=== PATIENT | female | born 1960 | race Caucasian/White ===

== ENCOUNTER 2018-08-31 11:28 | Inpatient (IN) | payer OTHER ==
[2018-08-31 12:04] VITALS: BMI 16.0
--- NOTE | 2018-08-31 14:18 | HP ---
CIWA Score - CIWA Score Nausea/Vomitin Muscle Tremors: 2 Anxiety: 2 Agitation: 2 Paroxysmal Sweats: 1-Minimal Palms Moist Orientation: 0-Oriented Tacttile Disturbances: 1-Very Mild Itch/Numbness Auditory Disturbances: 1-Very Mild Visual Disturbances: 0-None Headache: 2-Mild CIWA-Ar Total Score: 13 Admission ROS BHS - HPI Chief Complaint: i nee help to stop drinking alcohol Allergies/Adverse Reactions: Allergies Allergy/AdvReac Type Severity Reaction Status Date / Time No Known Allergies Allergy Verified 08/31/18 13:34 History of Present Illness: this 58 years old female with alcohol dependence,seeking detox,withdrawal symptom,last detox 25 years ago,[facility] history of hypertension non compliance mmtp 70 mgs po daily,last medicated today weight loss depression,insomnia longest period of sobriety 3 years nicotine dependence Exam Limitations: No Limitations - Ebola screening Have you traveled outside of the country in the last 21 days: No Have you had contact with anyone from an Ebola affected area: No Have you been sick,other than usual withdrawal symptoms: No Do you have a fever: No - Review of Systems Constitutional: Loss of Appetite, Malaise, Night Sweats, Changes in sleep, Unintentional Wgt. Loss EENT: reports: Nose Congestion Respiratory: reports: No Symptoms reported Cardiac: reports: No Symptoms Reported GI: reports: Nausea, Poor Appetite, Abdominal cramping : reports: No Symptoms Reported Musculoskeletal: reports: Back Pain, Muscle Pain Integumentary: reports: Dryness Neuro: reports: Headache, Tremors Endocrine: reports: No Symptoms Reported Hematology: reports: No Symptoms Reported Psychiatric: reports: No Sypmtoms Reported, Judgement Intact, Mood/Affect Appropiate, Orientated x3 (insomnia) Patient History - Patient Medical History Hx Anemia: No Hx Asthma: No Hx Chronic Obstructive Pulmonary Disease (COPD): No Hx Cancer: No Hx Cardiac Disorders: No Hx Congestive Heart Failure: No Hx Hypertension: Yes (on med) Hx Hypercholesterolemia: No Hx Pacemaker: No HX Cerebrovascular Accident: No Hx Seizures: No Hx Dementia: No Hx Diabetes: No Hx Gastrointestinal Disorders: No Hx Liver Disease: No Hx Genitourinary Disorders: No Hx Sexually Transmitted Disorders: No Hx Renal Disease (ESRD): No Hx Thyroid Disease: No Hx Human Immunodeficiency Virus (HIV): No (last 02/24 negative) Hx Hepatitis C: No Hx Depression: No Hx Suicide Attempt: No Hx Bipolar Disorder: No Hx Schizophrenia: No Other Medical History: insomnia,no homicidal,no suicidal - Patient Surgical History Past Surgical History: Yes Hx Neurologic Surgery: No Hx Cataract Extraction: No Hx Cardiac Surgery: No Hx Lung Surgery: No Hx Breast Surgery: No Hx Breast Biopsy: No Hx Abdominal Surgery: No Hx Appendectomy: Yes (at age 14) Hx Cholecystectomy: No Hx Genitourinary Surgery: No Hx Section: No Hx Orthopedic Surgery: No Other Surgical History: tonsilectomy at age 15 Anesthesia Reaction: No - PPD History Previous Implant?: Yes Documented Results: Negative w/o proof Implanted On Prior R Admission?: No PPD to be Administered?: Yes - Reproductive History Patient is a Female of Child Bearing Age (11 -55 yrs old): No Patient : No - Smoking Cessation Smoking history: Current every day smoker Have you smoked in the past 12 months: Yes Aproximately how many cigarettes per day: 3 Hx Chewing Tobacco Use: No Initiated information on smoking cessation: Yes 'Breaking Loose' booklet given: 08/31/18 - Substance & Tx. History Hx Alcohol Use: Yes Hx Substance Use: No Substance Use Type: Alcohol Hx Substance Use Treatment: No (25 years ago) - Substances Abused Alcohol-vodka/beer Route: Oral Frequency: Daily Amount used: 2 pts./2-6 pks. Age of first use: 15 Date of Last Use: 08/31/18 Family Disease History - Family Disease History Family Disease History: Other: Father (alcohol,), Mother (lacohol, ) Admission Physical Exam S - Vital Signs Vital Signs: Vital Signs - 24 hr 08/31/18 11:58 Temperature 97.8 F Pulse Rate 85 Respiratory 18 Rate Blood Pressure 127/84 - Physical General Appearance: Yes: Moderate Distress, Tremorous, Irritable, Sweating, Anxious HEENTM: Yes: Normocephalic, LIZANDRO, Pharynx Normal Respiratory: Yes: Lungs Clear, Normal Breath Sounds, No Respiratory Distress Neck: Yes: Within Normal Limits, Supple, Trachea in good position Breast: Yes: Breast Exam Deferred Cardiology: Yes: Within Normal Limits, Regular Rhythm, Regular Rate, S1, S2 Abdominal: Yes: Within Normal Limits, Normal Bowel Sounds, Non Tender, Soft Genitourinary: Yes: Within Normal Limits Back: Yes: Within Normal Limits, Normal Inspection, Muscle Spasm Musculoskeletal: Yes: full range of Motion, Back pain, Muscle Pain Extremities: Yes: Tremors 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: Yes: Within Normal Limits, frame nailer II-XII NML intact, Fully Oriented, Alert Integumentary: Yes: Dry Lymphatic: Yes: Within Normal Limits - Diagnostic (1) Alcohol dependence with uncomplicated withdrawal Current Visit: Yes Status: Acute (2) Syncope Current Visit: Yes Status: Acute (3) Nicotine dependence Current Visit: Yes Status: Chronic (4) Weight loss Current Visit: Yes Status: Acute (5) Dehydration Current Visit: Yes Status: Acute (6) Poor oral hygiene Current Visit: Yes Status: Acute (7) Methadone maintenance therapy patient Current Visit: Yes Status: Chronic (8) Insomnia Current Visit: Yes Status: Acute (9) Essential hypertension Current Visit: Yes Status: Acute Cleared for Admission [facility] - Detox or Rehab [facility] Level of Care: Medically Managed Detox Regimen/Protocol: Librium [facility] Breath Alcohol Content Breath Alcohol Content: 0.032 Urine Pregancy Test - Result Urine Test Results: Negative- NO Line Present Urine Drug Screen - Results Drug Screen Negative: No Urine Drug Screen Results: FOSTER-Cocaine, MTD-Methadone
[2018-08-31] MEDS ORDERED: P-EPHED 60MG/TRIPROLIDI 2.5MG TABLET PO PRN (14:28)
[2018-08-31] MEDS ORDERED: IBUPROFEN 400 MG TABLET (FP) PO PRN (14:28)
[2018-08-31] MEDS ORDERED: MAGNESIUM CITRATE 300 ML BOTTLE PO PRN (14:28)
[2018-08-31] MEDS ORDERED: ACETAMINOPHEN 325 MG TABLET (FP) PO PRN (14:28)
[2018-08-31] MEDS ORDERED: chlordiazePOXIDE HCL 25 MG CAPSULE PO PRN (14:28)
[2018-08-31] MEDS ORDERED: MENTHOL/PHENOL 1 EACH UD MM PRN (14:28)
[2018-08-31] MEDS ORDERED: MAGNESIUM HYDROX 2400MG/30ML ORAL SUSPENSION 30 ML CUP PO PRN (14:28)
[2018-08-31] MEDS ORDERED: hydrOXYzine PAMOATE 25 MG CAPSULE (FP) PO PRN (14:28)
[2018-08-31] MEDS ORDERED: NICOTINE POLACRILEX 2 MG GUM BUC PRN (14:28)
[2018-08-31] MEDS ORDERED: guaiFENesin/D-METHORPHAN HB 10 ML UNIT-DOSE CUPS PO PRN (14:28)
[2018-08-31] MEDS ORDERED: LOPERAMIDE HCL 2 MG CAPSULE PO PRN (14:28)
[2018-08-31] MEDS ORDERED: MAG HYDROX/AL HYDROX/SIMETH 30 ML UNIT-DOSE CUP PO PRN (14:28)
--- NOTE | 2018-08-31 16:30 | CONSULT ---
[facility] Psychiatric Consult - Data Date of interview: 08/31/18 Admission source: [facility] Identifying data: Patient is a 58 year old single female, mother of one, unemployed, homeless, and is supported by [facility]. This is patient's first admission to detox at [facility]. Patient admitted to for alcohol dependence. Substance Abuse History: Smoking Cessation. Smoking history: Current every day smoker. Have you smoked in the past 12 months: Yes. Aproximately how many cigarettes per day: 3. Hx Chewing Tobacco Use: No. Initiated information on smoking cessation: Yes. 'Breaking Loose' booklet given: 08/31/18. - Substance & Tx. History. Hx Alcohol Use: Yes. Hx Substance Use: No. Substance Use Type : Alcohol. Hx Substance Use Treatment: No (25 years ago). - Substances Abused. Alcohol-vodka/beer. Route: Oral. Frequency: Daily. Amount used: 2 pts./2-6 pks. Age of first use: 15. Date of Last Use: 08/31/18 Medical History: hypertension, Appendectomy, tonsillectomy Psychiatric History: Patient denies h/o psychiatric hospitalizations, outpatient care, and suicide attempt. Patient is currently prescribed seroquel 25mg from her primary care physician on [address]. Last took seroquel last night. Patient is currently enrolled at the [facility] methadone program. She is currently on methadone maintenance of 70mg daily. Physical/Sexual Abuse/Trauma History: denies. Psychiatric Findings - Problem List ([place] 1, 2,3) (1) Substance-induced sleep disorder Current Visit: Yes Status: Acute (2) Alcohol dependence with uncomplicated withdrawal Current Visit: Yes Status: Acute (3) Methadone maintenance therapy patient Current Visit: Yes Status: Chronic (4) Nicotine dependence Current Visit: Yes Status: Chronic - Initial Treatment Plan Initial Treatment Plan: Psychoeducation provided. Detoxification in progress. Will order Seroquel 25mg qhs. Benefits and side effects discussed. Verbal consent given.
[2018-08-31] MEDS: chlordiazePOXIDE HCL 25 MG CAPSULE PO SCH ×2 (17:07→22:03)
--- NOTE | 2018-08-31 17:42 | EKG ---
Test Reason : Blood Pressure : / mmHG Vent. Rate : 092 BPM Atrial Rate : 092 BPM P-R Int : 118 ms QRS Dur : 080 ms QT Int : 464 ms P-R-T Axes : 071 019 000 degrees QTc Int : 573 ms NORMAL SINUS RHYTHM POSSIBLE LEFT ATRIAL ENLARGEMENT SEPTAL INFARCT , AGE UNDETERMINED ABNORMAL ECG NO PREVIOUS ECGS AVAILABLE Confirmed by Evangelista Posey MD ([id number]) on 08/31/2018 5:41:38 PM Referred By: Confirmed By:Evangelista Posey MD
[2018-08-31 19:23] LABS: URINE APPEARANCE CLEAR; URINE BILIRUBIN NEGATIVE (<2.0 mg/dL); URINE COLOR YELLOW; URINE GLUCOSE (UA) NEGATIVE (NEGATIVE); URINE KETONE NEGATIVE (NEGATIVE); URINE LEUK ESTERASE 3+ (NEGATIVE); URINE NITRITE NEGATIVE (NEGATIVE); URINE PROTEIN NEGATIVE (NEGATIVE); URINE UROBILINOGEN NEGATIVE mg/dL (0.2-1.0)
[2018-08-31 19:38] LABS: EPI CELLS RARE /HPF (FEW); URINE HYALINE CAST 1 /lpf; URINE MUCUS RARE
[2018-08-31] MEDS ORDERED: MELATONIN 5 MG TABLETS PO PRN (22:00)
[2018-08-31] MEDS: THIAMINE HCL 100 MG TABLET (FP) PO SCH (22:03)
[2018-08-31] MEDS: QUEtiapine FUMARATE 25 MG TABLET (FP) PO SCH (22:04)
[2018-09-01] MEDS ORDERED: METHADONE HCL 40 MG DISPERSABLE TABLET ONE (04:47)
[2018-09-01] MEDS ORDERED: METHADONE HCL 10 MG TABLET ONE (04:48)
[2018-09-01] MEDS: METHADONE 40 MG, METHADONE 30 MG PO SCH (05:17)
[2018-09-01] MEDS: chlordiazePOXIDE HCL 25 MG CAPSULE PO SCH ×4 (05:17→22:03)
[2018-09-01] MEDS ORDERED: METHADONE HCL 10 MG TABLET PO SCH (06:00)
[2018-09-01] MEDS: PRENATAL VITAMINS W/ FOLIC ACID TABLET (FP) PO SCH (10:04)
--- NOTE | 2018-09-01 11:42 | PN ---
S CIWA - CIWA Score Nausea/Vomitin-No Nausea/No Vomiting Muscle Tremors: 4-Moderate,w/Arms Extend Anxiety: 4-Mod. Anxious/Guarded Agitation: 4-Moderately Restless Paroxysmal Sweats: 3 Orientation: 0-Oriented Tacttile Disturbances: 0-None Auditory Disturbances: 0-None Visual Disturbances: 0-None Headache: 0-None Present CIWA-Ar Total Score: 15 BHS Progress Note (SOAP) Subjective: sweats interrupted sleep agitation anxiety body aches Objective: 09/01/18 11:41 Vital Signs Temperature 96.4 F L 09/01/18 09:37 Pulse Rate 91 H 09/01/18 09:37 Respiratory Rate 18 09/01/18 09:37 Blood Pressure 122/83 09/01/18 09:37 O2 Sat by Pulse Oximetry (%) Laboratory Tests 08/31/18 16:02 Urine Color Yellow Urine Appearance Clear Urine pH 5.0 Ur Specific [place] 1.014 Urine Protein Negative Urine Glucose (UA) Negative Urine Ketones Negative Urine Blood Negative Urine Nitrite Negative Urine Bilirubin Negative Urine Urobilinogen Negative Ur Leukocyte Esterase 3+ H Urine WBC (Auto) 15 Urine RBC (Auto) 1 Ur Epithelial Cells Rare Hyaline Casts 1 Urine Mucus Rare rest of labs pending aaox3 ambulating no acute distress Assessment: 09/01/18 11:42 withdrawal sx Plan: continue detox increase fluids labs pending
[2018-09-01 14:18] LABS: HEMOGLOBIN 8.7 GM/dL (10.7-15.3); MCH 36.5 pg (25.7-33.7); MCHC 33.3 g/dl (32.0-36.0); MEAN CELL VOLUME 109.6 fl (80-96); PLATELET COUNT 211 K/MM3 (134-434); RBC 2.38 M/mm3 (3.60-5.2); RDW 21.1 % (11.6-15.6); WHITE BLOOD COUNT 4.9 K/mm3 (4.0-10.0)
[2018-09-01 14:50] LABS: ALBUMIN 2.6 g/dl (3.4-5.0); ALK PHOS 224 U/L (45-117); ANION GAP 9 MMOL/L (8-16); BILIRUBIN,TOTAL 0.7 mg/dL (0.2-1); BLOOD UREA NITROGEN 23 mg/dL (7-18); CALCIUM 8.2 mg/dL (8.5-10.1); CHLORIDE 103 mmol/L (98-107); CO2 29 mmol/L (21-32); CREATININE 1.1 mg/dL (0.55-1.3); GLUCOSE,RANDOM 64 mg/dL (74-106); POTASSIUM 4.4 mmol/L (3.5-5.1); SGOT/AST 120 U/L (15-37); SGPT/ALT 71 U/L (13-61); SODIUM 141 mmol/L (136-145); TOT PROT 6.2 g/dl (6.4-8.2)
[2018-09-01] MEDS: THIAMINE HCL 100 MG TABLET (FP) PO SCH (22:03)
[2018-09-01] MEDS: QUEtiapine FUMARATE 25 MG TABLET (FP) PO SCH (22:03)
[2018-09-02] MEDS ORDERED: METHADONE HCL 40 MG DISPERSABLE TABLET ONE (04:45)
[2018-09-02] MEDS ORDERED: METHADONE HCL 10 MG TABLET ONE (04:45)
[2018-09-02] MEDS: METHADONE 40 MG, METHADONE 30 MG PO SCH (05:35)
[2018-09-02] MEDS: chlordiazePOXIDE HCL 25 MG CAPSULE PO SCH ×2 (05:35→10:18)
[2018-09-02] MEDS: PRENATAL VITAMINS W/ FOLIC ACID TABLET (FP) PO SCH (10:18)
--- NOTE | 2018-09-02 11:01 | PN ---
[facility] CIWA - CIWA Score Nausea/Vomitin-No Nausea/No Vomiting Muscle Tremors: 3 Anxiety: 3 Agitation: 4-Moderately Restless Paroxysmal Sweats: 3 Orientation: 0-Oriented Tacttile Disturbances: 0-None Auditory Disturbances: 0-None Visual Disturbances: 0-None Headache: 0-None Present CIWA-Ar Total Score: 13 S Progress Note (SOAP) Subjective: sweats little shakes feeling better Objective: 09/02/18 11:01 Vital Signs Temperature 98.1 F 09/02/18 09:59 Pulse Rate 77 09/02/18 09:59 Respiratory Rate 17 09/02/18 09:59 Blood Pressure 122/89 09/02/18 09:59 O2 Sat by Pulse Oximetry (%) Laboratory Tests 08/31/18 09/01/18 09/01/18 16:02 05:55 05:55 WBC 4.9 RBC 2.38 L Hgb 8.7 L Hct 26.0 L MCV 109.6 H MCH 36.5 H MCHC 33.3 RDW 21.1 H Plt Count 211 MPV 10.0 Sodium 141 Potassium 4.4 Chloride 103 Carbon Dioxide 29 Anion Gap 9 BUN 23 H Creatinine 1.1 Creat Clearance w eGFR 51.20 Random Glucose 64 L Calcium 8.2 L Total Bilirubin 0.7 AST 120 H ALT 71 H Alkaline Phosphatase 224 H Total Protein 6.2 L Albumin 2.6 L Urine Color Yellow Urine Appearance Clear Urine pH 5.0 Ur Specific [place] 1.014 Urine Protein Negative Urine Glucose (UA) Negative Urine Ketones Negative Urine Blood Negative Urine Nitrite Negative Urine Bilirubin Negative Urine Urobilinogen Negative Ur Leukocyte Esterase 3+ H Urine WBC (Auto) 15 Urine RBC (Auto) 1 Ur Epithelial Cells Rare Hyaline Casts 1 Urine Mucus Rare RPR Titer 09/01/18 05:55 WBC RBC Hgb Hct MCV MCH MCHC RDW Plt Count MPV Sodium Potassium Chloride Carbon Dioxide Anion Gap BUN Creatinine Creat Clearance w eGFR Random Glucose Calcium Total Bilirubin AST ALT Alkaline Phosphatase Total Protein Albumin Urine Color Urine Appearance Urine pH Ur Specific [place] Urine Protein Urine Glucose (UA) Urine Ketones Urine Blood Urine Nitrite Urine Bilirubin Urine Urobilinogen Ur Leukocyte Esterase Urine WBC (Auto) Urine RBC (Auto) Ur Epithelial Cells Hyaline Casts Urine Mucus RPR Titer Nonreactive aaox3 ambulating no acute distress Assessment: 09/02/18 11:02 withdrawal sx Plan: continue detox increase fluids
[2018-09-02] MEDS: chlordiazePOXIDE 5 MG CAPSULE PO SCH ×2 (17:30→22:33)
[2018-09-02] MEDS: QUEtiapine FUMARATE 25 MG TABLET (FP) PO SCH (22:33)
[2018-09-02] MEDS: THIAMINE HCL 100 MG TABLET (FP) PO SCH (22:33)
[2018-09-03] MEDS ORDERED: METHADONE HCL 10 MG TABLET ONE (04:30)
[2018-09-03] MEDS ORDERED: METHADONE HCL 40 MG DISPERSABLE TABLET ONE (04:30)
[2018-09-03] MEDS: chlordiazePOXIDE 5 MG CAPSULE PO SCH ×2 (05:26→10:05)
[2018-09-03] MEDS: METHADONE 40 MG, METHADONE 30 MG PO SCH (05:27)
[2018-09-03] MEDS: PRENATAL VITAMINS W/ FOLIC ACID TABLET (FP) PO SCH (10:05)
--- NOTE | 2018-09-03 11:11 | PN ---
BHS Progress Note (SOAP) Subjective: right hip discomfort feeling much better sleeping much better Objective: 09/03/18 11:10 Vital Signs Temperature 98.4 F 09/03/18 09:41 Pulse Rate 93 H 09/03/18 09:41 Respiratory Rate 18 09/03/18 09:41 Blood Pressure 113/71 09/03/18 09:41 O2 Sat by Pulse Oximetry (%) aaox3 ambulating no acute distress repeat cbc and cmp today Assessment: 09/03/18 11:10 mild withdrawal sx Plan: continue detox increase fluids iron supplement tid pending labs lidocaine patch d/c in am
[2018-09-03] MEDS ORDERED: LIDOCAINE 5% TOPICAL PATCH TP ONE (11:30)
[2018-09-03] MEDS: FERROUS SO4 325 MG TABLET (FP) PO SCH ×2 (13:40→17:18)
[2018-09-03 15:09] LABS: BASO % 0.8 % (0-2.0); EOS % 0.7 % (0-4.5); HEMATOCRIT 26.3 % (32.4-45.2); HEMOGLOBIN 8.6 GM/dL (10.7-15.3); LYMPH % 25.3 % (8-40); MCH 36.5 pg (25.7-33.7); MCHC 32.7 g/dl (32.0-36.0); MEAN CELL VOLUME 111.6 fl (80-96); MEAN PLT VOLUME 8.7 fl (7.5-11.1); MONO % 6.5 % (3.8-10.2); NEUT % 66.7 % (42.8-82.8); PLATELET COUNT 209 K/MM3 (134-434); RBC 2.36 M/mm3 (3.60-5.2); RDW 20.6 % (11.6-15.6); WHITE BLOOD COUNT 5.4 K/mm3 (4.0-10.0)
[2018-09-03 15:24] LABS: ALBUMIN 2.5 g/dl (3.4-5.0); ALK PHOS 209 U/L (45-117); ANION GAP 7 MMOL/L (8-16); BILIRUBIN,TOTAL 0.5 mg/dL (0.2-1); BLOOD UREA NITROGEN 21 mg/dL (7-18); CALCIUM 8.3 mg/dL (8.5-10.1); CHLORIDE 111 mmol/L (98-107); CO2 29 mmol/L (21-32); GLUCOSE,RANDOM 116 mg/dL (74-106); POTASSIUM 3.9 mmol/L (3.5-5.1); SGOT/AST 81 U/L (15-37); SGPT/ALT 53 U/L (13-61); SODIUM 147 mmol/L (136-145)
[2018-09-03] MEDS: chlordiazePOXIDE HCL 10 MG CAPSULE PO SCH ×2 (18:36→22:10)
[2018-09-03 19:45] LABS: ANISOCYTOSIS 2+; MACROCYTOSIS 2+; PLATELET ESTIMATE ADEQUATE
[2018-09-03] MEDS ORDERED: LIDOCAINE PATCH REMOVAL MC SCH (22:00)
[2018-09-03] MEDS: QUEtiapine FUMARATE 25 MG TABLET (FP) PO SCH (22:10)
[2018-09-03] MEDS: THIAMINE HCL 100 MG TABLET (FP) PO SCH (22:10)
[2018-09-04] MEDS ORDERED: METHADONE HCL 40 MG DISPERSABLE TABLET ONE (04:46)
[2018-09-04] MEDS ORDERED: METHADONE HCL 10 MG TABLET ONE (04:47)
[2018-09-04] MEDS: chlordiazePOXIDE HCL 10 MG CAPSULE PO SCH (05:25)
[2018-09-04] MEDS: METHADONE 40 MG, METHADONE 30 MG PO SCH (05:25)
[2018-09-04] MEDS: FERROUS SO4 325 MG TABLET (FP) PO SCH (07:10)
[2018-09-04 09:33] VITALS: BP 116/87; PULSE 101; TEMP 98.2
[2018-09-04] MEDS: PRENATAL VITAMINS W/ FOLIC ACID TABLET (FP) PO SCH (11:05)
== END 2018-09-04 09:35 | disposition home or self-care (01) | DRG 773 ==
LOC: YASAS 11:28 → Y6N 14:45
PROC: HZ2ZZZZ Detoxification Services for Substance Abuse Treatment (ICD-10-PCS; principal; 2018-08-31)
DX: F10.230 Alcohol dependence with withdrawal, uncomplicated (principal); F11.20 Opioid dependence, uncomplicated; F17.210 Nicotine dependence, cigarettes, uncomplicated; F19.282 Other psychoactive substance dependence with psychoactive substance-induced sleep disorder; R55 Syncope and collapse; I10 Essential (primary) hypertension; E86.0 Dehydration; G47.00 Insomnia, unspecified; R46.0 Very low level of personal hygiene; R63.4 Abnormal weight loss; Z68.1 Body mass index [BMI] 19.9 or less, adult
CPT/HCPCS: 36415; 80053; 81003; 81015; 85025; 85027; 86593; 93005; 93010

== ENCOUNTER 2018-11-03 10:53 | Inpatient (IN) | payer OTHER ==
[2018-11-03 12:19] VITALS: BMI 16.6
--- NOTE | 2018-11-03 13:12 | HP ---
CIWA Score Nausea/Vomitin-Mild Nausea/No Vomiting Muscle Tremors: 3 Anxiety: 3 Agitation: 3 Paroxysmal Sweats: No Perspiration Orientation: 0-Oriented Tacttile Disturbances: 0-None Auditory Disturbances: 0-None Visual Disturbances: 0-None Headache: 3-Moderate CIWA-Ar Total Score: 13 - Admission Criteria [facility] Guidelines: Admission for Medically Managed Detox: Requires at least one of the followin. CIWA greater than 12 2. Seizures within the past 24 hours 3. Delirium tremens within the past 24 hours 4. Hallucinations within the past 24 hours 5. Acute intervention needed for co occurring medical disorder 6. Acute intervention needed for co occurring psychiatric disorder 7. Severe withdrawal that cannot be handled at a lower level of care (continued vomiting, continued diarrhea, abnormal vital signs) requiring intravenous medication and/or fluids 8. Admission ROS [facility] Chief Complaint: ETOH WITHDRAWAL SX Allergies/Adverse Reactions: Allergies Allergy/AdvReac Type Severity Reaction Status Date / Time No Known Allergies Allergy Verified 11/03/18 12:46 History of Present Illness: PATIENT PRESENTS WITH ETOH WITHDRAWAL SX. PATIENT IS KNOWN TO FACILITY, LAST ADMISSION 08/2018. PATIENT STARTED DRINKING AT AGE 16. PATIENT DRINKS 1-2 PINTS DAILY. LAST DRINK WAS THIS MORNING. LONGEST PERIOD OF SOBRIETY A FEW MONTHS. DENIES SEIZURES AND FALLS. +BLACKOUTS AND DRINKS SOON SHE GETS UP. PATIENT IN MMTP AT [facility], DOSE VERIFICATION PENDING. PATIENT HAD LAST DOSE THIS MORNING. + COCAINE USE. PMH INCLUDES HTN. DENIES SI/HI. Exam Limitations: No Limitations - Ebola screening Have you traveled outside of the country in the last 21 days: No (N) Have you had contact with anyone from an Ebola affected area: No Have you been sick,other than usual withdrawal symptoms: No Do you have a fever: No - Review of Systems Constitutional: Night Sweats, Unintentional Wgt. Loss EENT: reports: No Symptoms Reported Respiratory: reports: No Symptoms reported Cardiac: reports: No Symptoms Reported GI: reports: Nausea, Poor Fluid Intake, Abdominal cramping : reports: No Symptoms Reported Musculoskeletal: reports: No Symptoms Reported Integumentary: reports: No Symptoms Reported Neuro: reports: Headache, Numbness, Tingling, Tremors Endocrine: reports: Unexplained Weight Loss Hematology: reports: No Symptoms Reported Psychiatric: reports: Orientated x3, Anxious Patient History - Patient Medical History Hx Anemia: No Hx Asthma: No Hx Chronic Obstructive Pulmonary Disease (COPD): No Hx Cancer: No Hx Cardiac Disorders: No Hx Congestive Heart Failure: No Hx Hypertension: Yes Hx Hypercholesterolemia: No Hx Pacemaker: No HX Cerebrovascular Accident: No Hx Seizures: No Hx Dementia: No Hx Diabetes: No Hx Gastrointestinal Disorders: No Hx Liver Disease: No Hx Genitourinary Disorders: No Hx Sexually Transmitted Disorders: No Hx Renal Disease (ESRD): No Hx Thyroid Disease: No Hx Human Immunodeficiency Virus (HIV): No (last 02/24 negative) Hx Hepatitis C: No Hx Depression: No Hx Suicide Attempt: No Hx Bipolar Disorder: No Hx Schizophrenia: No - Patient Surgical History Past Surgical History: Yes Hx Neurologic Surgery: No Hx Cataract Extraction: No Hx Cardiac Surgery: No Hx Lung Surgery: No Hx Breast Surgery: No Hx Breast Biopsy: No Hx Abdominal Surgery: No Hx Appendectomy: Yes (at age 14) Hx Cholecystectomy: No Hx Genitourinary Surgery: No Hx Section: No Hx Orthopedic Surgery: No Other Surgical History: tonsilectomy at age 15 Anesthesia Reaction: No - PPD History Previous Implant?: Yes Documented Results: Negative w/proof Implanted On Prior R Admission?: Yes Date: 09/02/18 Results: 0 mm PPD to be Administered?: No - Reproductive History Patient is a Female of Child Bearing Age (11 -55 yrs old): No Patient : No - Smoking Cessation Smoking history: Current every day smoker Have you smoked in the past 12 months: Yes Aproximately how many cigarettes per day: 2 Hx Chewing Tobacco Use: No Initiated information on smoking cessation: Yes 'Breaking Loose' booklet given: 11/03/18 - Substance & Tx. History Hx Alcohol Use: Yes Hx Substance Use: Yes Substance Use Type: Alcohol, Cocaine, Prescribed Hx Substance Use Treatment: Yes - Substances Abused Cocaine Route: Inhalation Frequency: 1-2 times per week Amount used: $20 Age of first use: 15 Date of Last Use: 11/02/18 Alcohol-vodka/beer Route: Oral Frequency: Daily Amount used: 2-3 pts./1-6 pk. Age of first use: 15 Date of Last Use: 11/02/18 Family Disease History - Family Disease History Family Disease History: Other: Father (alcohol,), Mother (lacohol, ) Admission Physical Exam [facility] - Vital Signs Vital Signs: Vital Signs - 24 hr 11/03/18 12:17 Temperature 97.7 F Pulse Rate 88 Respiratory 18 Rate Blood Pressure 103/73 - Physical General Appearance: Yes: Appropriately Dressed, Alcohol on Breath, Thin, Tremorous, Anxious HEENTM: Yes: EOMI, Hearing grossly Normal, Normocephalic, Normal Voice, LIZANDRO, Pharynx Normal Respiratory: Yes: Chest Non-Tender, Lungs Clear, Normal Breath Sounds, No Respiratory Distress, No Accessory Muscle Use Neck: Yes: No masses,lesions,Nodules, Supple, Trachea in good position Breast: Yes: Breast Exam Deferred Cardiology: Yes: Regular Rhythm, Regular Rate, S1, S2 Abdominal: Yes: Normal Bowel Sounds, Non Tender, Flat, Soft Genitourinary: Yes: Within Normal Limits Back: Yes: Normal Inspection Musculoskeletal: Yes: full range of Motion, Gait Steady Extremities: Yes: Normal Range of Motion, Non-Tender, Tremors 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: Yes: pricing manager II-XII NML intact, Fully Oriented, Alert, Motor Strength 5/5, Normal Mood/Affect, Normal Response, Numbness Integumentary: Yes: Normal Color, Dry, Warm Lymphatic: Yes: Within Normal Limits - Diagnostic (1) Alcohol dependence with uncomplicated withdrawal Current Visit: Yes Status: Acute (2) Essential hypertension Current Visit: Yes Status: Chronic (3) Weight loss Current Visit: Yes Status: Acute (4) Methadone maintenance therapy patient Current Visit: Yes Status: Chronic (5) Nicotine dependence Current Visit: Yes Status: Acute Qualifiers: Nicotine product type: unspecified Cleared for Admission [facility] - Detox or Rehab [facility] Level of Care: Medically Managed Detox Regimen/Protocol: Librium [facility] Breath Alcohol Content Breath Alcohol Content: 0.052 Urine Pregancy Test - Result Urine Test Results: Negative- NO Line Present Urine Drug Screen - Results Drug Screen Negative: No Urine Drug Screen Results: FOSTER-Cocaine, OPI-Opiates, MTD-Methadone
[2018-11-03] MEDS ORDERED: MAGNESIUM CITRATE 300 ML BOTTLE PO PRN ×2 (13:20→15:15)
[2018-11-03] MEDS ORDERED: MAGNESIUM HYDROX 2400MG/30ML ORAL SUSPENSION 30 ML CUP PO PRN ×2 (13:20→15:15)
[2018-11-03] MEDS ORDERED: guaiFENesin/D-METHORPHAN HB 10 ML UNIT-DOSE CUPS PO PRN ×2 (13:20→15:15)
[2018-11-03] MEDS ORDERED: MAG HYDROX/AL HYDROX/SIMETH 30 ML UNIT-DOSE CUP PO PRN ×2 (13:20→15:15)
[2018-11-03] MEDS ORDERED: MENTHOL/PHENOL 1 EACH UD MM PRN ×2 (13:20→15:15)
[2018-11-03] MEDS ORDERED: P-EPHED 60MG/TRIPROLIDI 2.5MG TABLET PO PRN ×2 (13:20→15:15)
[2018-11-03] MEDS ORDERED: hydrOXYzine PAMOATE 50 MG CAPSULE (FP) PO PRN (13:20)
[2018-11-03] MEDS ORDERED: ACETAMINOPHEN 325 MG TABLET (FP) PO PRN ×2 (13:20→15:15)
[2018-11-03] MEDS ORDERED: NICOTINE POLACRILEX 2 MG GUM BUC PRN (13:20)
[2018-11-03] MEDS ORDERED: IBUPROFEN 400 MG TABLET (FP) PO PRN ×2 (13:20→15:15)
[2018-11-03] MEDS ORDERED: LOPERAMIDE HCL 2 MG CAPSULE PO PRN (13:20)
[2018-11-03] MEDS ORDERED: chlordiazePOXIDE HCL 25 MG CAPSULE PO PRN (13:22)
[2018-11-03] MEDS: chlordiazePOXIDE HCL 25 MG CAPSULE PO SCH ×2 (17:09→22:15)
[2018-11-03] MEDS ORDERED: MELATONIN 5 MG TABLETS PO PRN ×2 (22:00)
[2018-11-03] MEDS ORDERED: THIAMINE HCL 100 MG TABLET (FP) PO SCH (22:00)
[2018-11-03] MEDS: MINERAL OIL/PETROLAT/WATER TOPICAL CREAM 113 GM JAR TP SCH (22:15)
[2018-11-03] MEDS: THIAMINE HCL 100 MG TABLET (FP) PO SCH (22:15)
[2018-11-04] MEDS: chlordiazePOXIDE HCL 25 MG CAPSULE PO SCH ×4 (05:45→22:32)
[2018-11-04] MEDS ORDERED: METHADONE HCL 10 MG TABLET ONE (09:11)
[2018-11-04] MEDS ORDERED: METHADONE HCL 40 MG DISPERSABLE TABLET ONE (09:11)
[2018-11-04] MEDS ORDERED: COLLOIDAL OATMEAL 1 BAR EACH TP PRN (09:15)
--- NOTE | 2018-11-04 09:28 | PN ---
S CIWA - CIWA Score Nausea/Vomitin-Mild Nausea/No Vomiting Muscle Tremors: 3 Anxiety: 2 Agitation: 1-Slight > Activity Paroxysmal Sweats: 1-Minimal Palms Moist Orientation: 1-Uncertain about Date Tacttile Disturbances: 1-Very Mild Itch/Numbness Auditory Disturbances: 0-None Visual Disturbances: 0-None Headache: 2-Mild CIWA-Ar Total Score: 12 BHS Progress Note (SOAP) Subjective: sweat restlessness anxiety on methadone program 70 mg daily verified tremor itchy skin Objective: 11/04/18 09:32 Vital Signs Temperature 97.1 F L 11/04/18 09:22 Pulse Rate 80 11/04/18 09:22 Respiratory Rate 18 11/04/18 09:22 Blood Pressure 136/84 11/04/18 09:22 O2 Sat by Pulse Oximetry (%) 11/04/18 09:32 lab pending Assessment: 11/04/18 09:33 withdrawal sx Plan: continue detox
[2018-11-04] MEDS ORDERED: METHADONE HCL 10 MG TABLET PO ONE (10:00)
[2018-11-04] MEDS ORDERED: METHADONE 40 MG, METHADONE 30 MG PO ONE (10:00)
[2018-11-04] MEDS ORDERED: PRENATAL VITAMINS W/ FOLIC ACID TABLET (FP) PO SCH (10:00)
[2018-11-04] MEDS: PRENATAL VITAMINS W/ FOLIC ACID TABLET (FP) PO SCH (10:10)
[2018-11-04] MEDS: amLODIPine BESYLATE 10 MG TABLET (FP) PO SCH (10:11)
[2018-11-04] MEDS: PETROLATUM, WHITE 30 GM TUBE TP SCH (10:11)
[2018-11-04] MEDS: MINERAL OIL/PETROLAT/WATER TOPICAL CREAM 113 GM JAR TP SCH ×2 (10:11→22:32)
[2018-11-04 11:08] LABS: HEMATOCRIT 37.8 % (32.4-45.2); HEMOGLOBIN 12.1 GM/dL (10.7-15.3); MCH 32.9 pg (25.7-33.7); MEAN PLT VOLUME 8.9 fl (7.5-11.1); PLATELET COUNT 407 K/MM3 (134-434); RBC 3.67 M/mm3 (3.60-5.2); RDW 14.6 % (11.6-15.6); WHITE BLOOD COUNT 6.3 K/mm3 (4.0-10.0)
[2018-11-04 11:20] LABS: ALBUMIN 3.2 g/dl (3.4-5.0); ALK PHOS 153 U/L (45-117); ANION GAP 8 MMOL/L (8-16); BILIRUBIN,TOTAL 0.4 mg/dL (0.2-1); BLOOD UREA NITROGEN 24 mg/dL (7-18); CALCIUM 8.5 mg/dL (8.5-10.1); CHLORIDE 106 mmol/L (98-107); CO2 28 mmol/L (21-32); GLUCOSE,RANDOM 104 mg/dL (74-106); POTASSIUM 3.9 mmol/L (3.5-5.1); SGOT/AST 36 U/L (15-37); SGPT/ALT 21 U/L (13-61); SODIUM 141 mmol/L (136-145); TOT PROT 7.2 g/dl (6.4-8.2)
[2018-11-04] MEDS: THIAMINE HCL 100 MG TABLET (FP) PO SCH (22:31)
[2018-11-05] MEDS ORDERED: METHADONE HCL 40 MG DISPERSABLE TABLET ONE (05:08)
[2018-11-05] MEDS ORDERED: METHADONE HCL 10 MG TABLET ONE (05:08)
[2018-11-05] MEDS: chlordiazePOXIDE HCL 25 MG CAPSULE PO SCH ×2 (05:51→10:44)
[2018-11-05] MEDS: METHADONE 40 MG, METHADONE 30 MG PO SCH (05:51)
[2018-11-05] MEDS ORDERED: METHADONE HCL 10 MG TABLET PO SCH (06:00)
[2018-11-05] MEDS: amLODIPine BESYLATE 10 MG TABLET (FP) PO SCH (10:43)
[2018-11-05] MEDS: PRENATAL VITAMINS W/ FOLIC ACID TABLET (FP) PO SCH (10:44)
[2018-11-05] MEDS: PETROLATUM, WHITE 30 GM TUBE TP SCH (10:47)
[2018-11-05] MEDS: MINERAL OIL/PETROLAT/WATER TOPICAL CREAM 113 GM JAR TP SCH ×2 (12:01→22:26)
--- NOTE | 2018-11-05 14:27 | PN ---
S CIWA - CIWA Score Nausea/Vomitin-No Nausea/No Vomiting Muscle Tremors: None Anxiety: 3 Agitation: 4-Moderately Restless Paroxysmal Sweats: No Perspiration Orientation: 0-Oriented Tacttile Disturbances: 2-Mild Itch/Numbness/Burn Auditory Disturbances: 0-None Visual Disturbances: 0-None Headache: 0-None Present CIWA-Ar Total Score: 9 BHS Progress Note (SOAP) Subjective: PATIENT C/O ANXIETY, RESTLESSNESS AND BURNING/ITCHING TO FEET. REPORTS AMBULATING WITH CANE BUT SHE LOST IT. Objective: 11/05/18 14:25 Vital Signs Temperature 97.8 F 11/05/18 09:24 Pulse Rate 92 H 11/05/18 09:24 Respiratory Rate 18 11/05/18 09:24 Blood Pressure 117/91 11/05/18 09:24 O2 Sat by Pulse Oximetry (%) Laboratory Tests 11/04/18 11/04/18 11/04/18 05:45 05:45 05:45 WBC 6.3 RBC 3.67 Hgb 12.1 Hct 37.8 D MCV 103.0 H MCH 32.9 MCHC 32.0 RDW 14.6 D Plt Count 407 D MPV 8.9 Sodium 141 Potassium 3.9 Chloride 106 Carbon Dioxide 28 Anion Gap 8 BUN 24 H Creatinine 1.0 Creat Clearance w eGFR 57.15 Random Glucose 104 Calcium 8.5 Total Bilirubin 0.4 AST 36 ALT 21 Alkaline Phosphatase 153 H Total Protein 7.2 Albumin 3.2 L RPR Titer Nonreactive PE ALERT AND ORIENTED X 3 SKIN WARM AND DRY EXT FULL ROM, NO EDEMA AMB AD PACO RESTLESS AT TIMES, PACING IN [place]A Assessment: 11/05/18 14:26 WITHDRAWAL SX Plan: CONTINUE DETOX ORAL FLUIDS ENCOURAGED CANE ORDERED FOR AMBULATION SUPPORT
[2018-11-05] MEDS ORDERED: NICOTINE POLACRILEX 2 MG GUM BUC PRN (15:57)
[2018-11-05] MEDS: chlordiazePOXIDE 5 MG CAPSULE PO SCH ×2 (18:05→22:25)
[2018-11-05] MEDS: THIAMINE HCL 100 MG TABLET (FP) PO SCH (22:25)
[2018-11-06] MEDS ORDERED: METHADONE HCL 10 MG TABLET ONE (04:26)
[2018-11-06] MEDS ORDERED: METHADONE HCL 40 MG DISPERSABLE TABLET ONE (04:26)
[2018-11-06] MEDS: METHADONE 40 MG, METHADONE 30 MG PO SCH (05:23)
[2018-11-06] MEDS: chlordiazePOXIDE 5 MG CAPSULE PO SCH ×2 (05:23→10:32)
[2018-11-06] MEDS: amLODIPine BESYLATE 10 MG TABLET (FP) PO SCH (10:31)
[2018-11-06] MEDS: MINERAL OIL/PETROLAT/WATER TOPICAL CREAM 113 GM JAR TP SCH ×2 (10:31→23:35)
[2018-11-06] MEDS: PRENATAL VITAMINS W/ FOLIC ACID TABLET (FP) PO SCH (10:31)
[2018-11-06] MEDS: LOPERAMIDE HCL 2 MG CAPSULE PO PRN ×2 (10:32→17:44)
[2018-11-06] MEDS: PETROLATUM, WHITE 30 GM TUBE TP SCH (10:34)
[2018-11-06] MEDS ORDERED: WITCH HAZEL 50% (TUCKS) 40 PAD/JAR PAD TP PRN (12:10)
--- NOTE | 2018-11-06 17:38 | PN ---
BHS Progress Note (SOAP) Subjective: H/A, Diarrhea, Interrupted Sleep, Sweating. Objective: PATIENT A & O X 3, OBSERVED AMBULATING ON UNIT WITH ASSISTANCE OF A CANE. IN NO ACUTE DISTRESS. 11/06/18 17:35 Vital Signs Temperature 96.7 F L 11/06/18 15:10 Pulse Rate 82 11/06/18 15:10 Respiratory Rate 16 11/06/18 15:10 Blood Pressure 109/75 11/06/18 15:10 O2 Sat by Pulse Oximetry (%) Laboratory Tests 11/04/18 11/04/18 11/04/18 05:45 05:45 05:45 WBC 6.3 RBC 3.67 Hgb 12.1 Hct 37.8 D MCV 103.0 H MCH 32.9 MCHC 32.0 RDW 14.6 D Plt Count 407 D MPV 8.9 Sodium 141 Potassium 3.9 Chloride 106 Carbon Dioxide 28 Anion Gap 8 BUN 24 H Creatinine 1.0 Creat Clearance w eGFR 57.15 Random Glucose 104 Calcium 8.5 Total Bilirubin 0.4 AST 36 ALT 21 Alkaline Phosphatase 153 H Total Protein 7.2 Albumin 3.2 L RPR Titer Nonreactive LABS NOTED. Assessment: 11/06/18 17:37 WITHDRAWAL SYMPTOMS. Plan: CONTINUE DETOX. INCREASE DAILY PO FLUID INTAKE. PRN IMMODIUUM FOR DIARRHEA.
[2018-11-06] MEDS: chlordiazePOXIDE HCL 10 MG CAPSULE PO SCH ×2 (17:42→22:23)
[2018-11-06] MEDS: THIAMINE HCL 100 MG TABLET (FP) PO SCH (22:23)
[2018-11-07] MEDS ORDERED: METHADONE HCL 10 MG TABLET ONE (03:23)
[2018-11-07] MEDS ORDERED: METHADONE HCL 40 MG DISPERSABLE TABLET ONE (03:23)
[2018-11-07] MEDS: chlordiazePOXIDE HCL 10 MG CAPSULE PO SCH (05:55)
[2018-11-07] MEDS: METHADONE 40 MG, METHADONE 30 MG PO SCH (05:55)
[2018-11-07 10:10] VITALS: BP 114/79; PULSE 97; TEMP 98.2
--- NOTE | 2018-11-07 17:37 | DS ---
[facility] Detox Discharge Summary Admission Date: 11/03/18 Discharge Date: 11/07/18 - History Present History: Alcohol Dependence Additional Comments: Patient completed detox successfully. Patient is A, A, Ox3, in nad. Patient c/o diarrhea x 3 days and that she only took imodium twice. Polymer Specialist encouraged patient to stay until tomorrow to improve diarrhea but patient stated that her sister from the 6th floor is waiting for her and that she wants to go home. Patient stated diarrhea has improved a little. She agreed to have imodium Rx sent to her pharmacy. Patient instructed to drink more water and take imodium q4hr prn and to follow up with her PCP within 1-2 weeks. Pertinent Past History: Alcohol dependence HTN Nicotine dependence Opioid dependence on agonist - Physical Exam Results Vital Signs: Vital Signs Temperature 98.2 F 11/07/18 10:09 Pulse Rate 97 H 11/07/18 10:09 Respiratory Rate 18 11/07/18 10:09 Blood Pressure 114/79 11/07/18 10:09 O2 Sat by Pulse Oximetry (%) Pertinent Admission Physical Exam Findings: Withdrawal symptoms Laboratory Tests 11/04/18 11/04/18 11/04/18 05:45 05:45 05:45 WBC 6.3 RBC 3.67 Hgb 12.1 Hct 37.8 D MCV 103.0 H MCH 32.9 MCHC 32.0 RDW 14.6 D Plt Count 407 D MPV 8.9 Sodium 141 Potassium 3.9 Chloride 106 Carbon Dioxide 28 Anion Gap 8 BUN 24 H Creatinine 1.0 Creat Clearance w eGFR 57.15 Random Glucose 104 Calcium 8.5 Total Bilirubin 0.4 AST 36 ALT 21 Alkaline Phosphatase 153 H Total Protein 7.2 Albumin 3.2 L RPR Titer Nonreactive Labs reviewed: prerenal azotemia (encouraged PO water hydration) - Medication Discharge Medications: Ambulatory Orders Amlodipine Besylate [Norvasc -] 10 mg PO DAILY 11/03/18 Loperamide HCl [Imodium A-D] 2 mg PO Q4H PRN #30 capsule 11/07/18
== END 2018-11-07 09:33 | disposition home or self-care (01) | DRG 773 ==
LOC: YASAS 10:53 → Y3N 13:52
PROC: HZ2ZZZZ Detoxification Services for Substance Abuse Treatment (ICD-10-PCS; principal; 2018-11-03)
DX: F10.230 Alcohol dependence with withdrawal, uncomplicated (principal); F11.20 Opioid dependence, uncomplicated; F14.10 Cocaine abuse, uncomplicated; F17.210 Nicotine dependence, cigarettes, uncomplicated; I10 Essential (primary) hypertension; R79.89 Other specified abnormal findings of blood chemistry; R63.4 Abnormal weight loss; Z68.1 Body mass index [BMI] 19.9 or less, adult; R26.89 Other abnormalities of gait and mobility; Z99.89 Dependence on other enabling machines and devices
CPT/HCPCS: 36415; 80053; 85027; 86593

== ENCOUNTER 2019-03-01 11:51 | Inpatient (IN) | payer OTHER ==
[2019-03-01 15:28] VITALS: BMI 16.1
--- NOTE | 2019-03-01 15:45 | HP ---
CIWA Score Nausea/Vomitin-No Nausea/No Vomiting Muscle Tremors: 4-Moderate,w/Arms Extend Anxiety: 3 Agitation: 0-Normal Activity Paroxysmal Sweats: 2 Orientation: 1-Uncertain about Date Tacttile Disturbances: 2-Mild Itch/Numbness/Burn Auditory Disturbances: 0-None Visual Disturbances: 0-None Headache: 0-None Present CIWA-Ar Total Score: 12 - Admission Criteria OASAS Guidelines: Admission for Medically Managed Detox: Requires at least one of the followin. CIWA greater than 12 2. Seizures within the past 24 hours 3. Delirium tremens within the past 24 hours 4. Hallucinations within the past 24 hours 5. Acute intervention needed for co occurring medical disorder 6. Acute intervention needed for co occurring psychiatric disorder 7. Severe withdrawal that cannot be handled at a lower level of care (continued vomiting, continued diarrhea, abnormal vital signs) requiring intravenous medication and/or fluids 8. Patient presents the following: CIWA greater than 12, Acute intervention needed for co-occurring med or psych disorder Admission Criteria Met: Admission criteria met Admission ROS S - [facility] Chief Complaint: I need to stop drinking Allergies/Adverse Reactions: Allergies Allergy/AdvReac Type Severity Reaction Status Date / Time No Known Allergies Allergy Verified 03/01/19 15:23 History of Present Illness: 58 yo female with hx of alcohol, cocaine dependence is here seeking detox d/t withdrawal sx Last detox [facility] 11/03/18 -11/07/18. Reports was in the [facility] emergency dept about a week ago after taking methadone and suboxone together. On MMTP at [facility] on 70 mg qd, last medicated today. Reports no significant period of sobriety PMHX: HTN Psych: insomnia Denies hx of seizure or blackouts Exam Limitations: No Limitations - Ebola screening Have you traveled outside of the country in the last 21 days: No Have you had contact with anyone from an Ebola affected area: No - Review of Systems Constitutional: Loss of Appetite, Changes in sleep, Unintentional Wgt. Loss ( loss 6 lbs) EENT: reports: Nose Congestion, Dental Problems (bad teeth), Other ("I have a hole on nose") Respiratory: reports: No Symptoms reported Cardiac: reports: No Symptoms Reported GI: reports: Poor Appetite, Poor Fluid Intake : reports: No Symptoms Reported Musculoskeletal: reports: No Symptoms Reported Integumentary: reports: Dryness, Pruritus, Other (bruise left arm while at the hospital) Neuro: reports: No Symptoms reported Endocrine: reports: Increased Thirst, Change in Weight Hematology: reports: No Symptoms Reported Psychiatric: reports: Orientated x3, Anxious Other Systems: Reviewed and Negative Patient History - Patient Medical History Hx Anemia: No Hx Asthma: No Hx Chronic Obstructive Pulmonary Disease (COPD): No Hx Cancer: No Hx Cardiac Disorders: No Hx Congestive Heart Failure: No Hx Hypertension: Yes Hx Hypercholesterolemia: No Hx Pacemaker: No HX Cerebrovascular Accident: No Hx Seizures: No Hx Dementia: No Hx Diabetes: No Hx Gastrointestinal Disorders: No Hx Liver Disease: No Hx Genitourinary Disorders: No Hx Sexually Transmitted Disorders: No Hx Renal Disease (ESRD): No Hx Thyroid Disease: No Hx Human Immunodeficiency Virus (HIV): No (last 02/24 negative) Hx Hepatitis C: No Hx Depression: No Hx Suicide Attempt: No Hx Bipolar Disorder: No Hx Schizophrenia: No - Patient Surgical History Past Surgical History: Yes Hx Neurologic Surgery: No Hx Cataract Extraction: No Hx Cardiac Surgery: No Hx Lung Surgery: No Hx Breast Surgery: No Hx Breast Biopsy: No Hx Abdominal Surgery: No Hx Appendectomy: Yes (at age 14) Hx Cholecystectomy: No Hx Genitourinary Surgery: No Hx Section: No Hx Orthopedic Surgery: No Other Surgical History: tonsilectomy at age 15 Anesthesia Reaction: No - PPD History Previous Implant?: No Documented Results: Negative w/proof Date: 09/02/18 Results: 0 mm PPD to be Administered?: No - Smoking Cessation Smoking history: Current every day smoker Have you smoked in the past 12 months: Yes Aproximately how many cigarettes per day: 2 Hx Chewing Tobacco Use: No Initiated information on smoking cessation: Yes 'Breaking Loose' booklet given: 03/01/19 - Substance & Tx. History Hx Alcohol Use: Yes Hx Substance Use: Yes Substance Use Type: Alcohol, Cocaine Hx Substance Use Treatment: Yes - Substances abused Alcohol Substance route: Oral Frequency: Daily Amount used: 1 pt. vodka, 2 cans beer ( 32 oz) Age of first use: 15 Date of last use: 03/01/19 Family Disease History - Family Disease History Family Disease History: Other: Father (alcohol,), Mother (lacohol, ) Admission Physical Exam BHS - Vital Signs Vital Signs: Vital Signs - 24 hr 03/01/19 03/01/19 15:24 15:38 Temperature 98 F 98 F Pulse Rate 82 82 Respiratory 18 18 Rate Blood Pressure 160/108 H 160/108 H - Physical General Appearance: Yes: Disheveled, Mild Distress, Cachetic, Tremorous, Sweating, Anxious HEENTM: Yes: Within Normal Limits, EOMI, Hearing grossly Normal, Normal ENT Inspection, Normocephalic, Normal Voice, LIZANDRO, Pharynx Normal, Tm's normal, Other (poor dentition, dry nasal pasages) Respiratory: Yes: Within Normal Limits, Chest Non-Tender, Lungs Clear, Normal Breath Sounds, No Respiratory Distress, No Accessory Muscle Use Neck: Yes: Within Normal Limits, Thyroid tenderness Cardiology: Yes: Regular Rhythm, Regular Rate, Murmur Abdominal: Yes: Normal Bowel Sounds, Non Tender, Flat, Soft Genitourinary: Yes: Within Normal Limits Back: Yes: Normal Inspection Musculoskeletal: Yes: full range of Motion, Gait Steady, Pelvis Stable Extremities: Yes: Normal Capillary Refill, Normal Inspection, Normal Range of Motion, Non-Tender 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: 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 intact, Fully Oriented, Alert, Motor Strength 5/5, Depressed Affect Integumentary: Yes: Normal Color, Warm, Diaphoresis, Other (ecchymosis left upper arm, + lesion on lower extremities from scratching) Lymphatic: Yes: Within Normal Limits - Addiitonal Findings: Patient encourage to follow up with primary care provider upon completing detox - Diagnostic (1) Alcohol dependence with uncomplicated withdrawal Current Visit: No Status: Acute (2) Methadone maintenance therapy patient Current Visit: Yes Status: Chronic (3) Weight loss Current Visit: Yes Status: Acute (4) Essential hypertension Current Visit: Yes Status: Chronic (5) Nicotine dependence Current Visit: Yes Status: Chronic Qualifiers: Nicotine product type: cigarettes Substance use status: uncomplicated Qualified Code(s): F17.210 - Nicotine dependence, cigarettes, uncomplicated (6) Insomnia Current Visit: Yes Status: Acute Qualifiers: Insomnia type: unspecified Qualified Code(s): G47.00 - Insomnia, unspecified (7) Poor oral hygiene Current Visit: Yes Status: Acute Cleared for Admission [facility] - Detox or Rehab [facility] Level of Care: Medically Managed Detox Regimen/Protocol: Librium Breathalyzer - Breathalyzer Breathalyzer: 0.085 POC Urine test - Test device test lot number: [id number] Expiration date: 07/09/20 - Control test control: Yes - Result Urine Test Results: Negative - NO line present Urine Drug Screen - Test Device Lot number: [id number] Expiration date: 10/08/20 - Control Is test valid?: Yes - Results Drug screen NEGATIVE: No Urine drug screen results: FOSTER-Cocaine, MTD-Methadone Inpatient Rehab Admission - Rehab Decision to Admit Inpatient rehab admission?: No
[2019-03-01] MEDS ORDERED: ACETAMINOPHEN 325 MG TABLET (FP) PO PRN ×2 (15:59)
[2019-03-01] MEDS ORDERED: METHOCARBAMOL 500 MG TABLET PO PRN (15:59)
[2019-03-01] MEDS ORDERED: guaiFENesin 200 MG/10 ML 10 ML UNIT-DOSE CUPS PO PRN (15:59)
[2019-03-01] MEDS ORDERED: MAG HYDROX/AL HYDROX/SIMETH 30 ML UNIT-DOSE CUP PO PRN (15:59)
[2019-03-01] MEDS ORDERED: chlordiazePOXIDE HCL 25 MG CAPSULE PO PRN (15:59)
[2019-03-01] MEDS ORDERED: MAGNESIUM HYDROX 2400MG/30ML ORAL SUSPENSION 30 ML CUP PO PRN (15:59)
[2019-03-01] MEDS ORDERED: P-EPHED 60MG/TRIPROLIDI 2.5MG TABLET PO PRN (15:59)
[2019-03-01] MEDS ORDERED: hydrOXYzine PAMOATE 25 MG CAPSULE (FP) PO PRN (15:59)
[2019-03-01] MEDS ORDERED: MENTHOL/PHENOL 1 EACH UD MM PRN (15:59)
[2019-03-01] MEDS ORDERED: BISMUTH SUBSALICYLATE 524 MG/30 ML UD PO PRN (15:59)
[2019-03-01] MEDS ORDERED: ONDANSETRON *ODT* 4 MG TABLET SL PRN (15:59)
[2019-03-01] MEDS ORDERED: MELATONIN 5 MG TABLETS PO PRN (15:59)
[2019-03-01] MEDS ORDERED: MAGNESIUM CITRATE 300 ML BOTTLE PO PRN (15:59)
[2019-03-01] MEDS: amLODIPine BESYLATE 10 MG TABLET (FP) PO SCH (17:27)
[2019-03-01] MEDS: THIAMINE HCL 100 MG TABLET (FP) PO SCH (22:06)
[2019-03-01] MEDS: chlordiazePOXIDE HCL 25 MG CAPSULE PO SCH (22:06)
[2019-03-01] MEDS: MINERAL OIL/PETROLAT/WATER TOPICAL CREAM 113 GM JAR TP SCH (22:07)
[2019-03-02] MEDS: chlordiazePOXIDE HCL 25 MG CAPSULE PO SCH ×4 (05:42→22:07)
[2019-03-02] MEDS: IBUPROFEN 400 MG TABLET (FP) PO PRN (05:43)
[2019-03-02] MEDS ORDERED: METHADONE HCL 40 MG DISPERSABLE TABLET PO SCH (07:45)
[2019-03-02] MEDS ORDERED: METHADONE HCL 10 MG TABLET ONE (08:33)
[2019-03-02] MEDS ORDERED: METHADONE HCL 40 MG DISPERSABLE TABLET ONE (08:33)
[2019-03-02] MEDS: METHADONE 40 MG, METHADONE 30 MG PO SCH (08:50)
[2019-03-02] MEDS: PRENATAL VITAMINS W/ FOLIC ACID TABLET (FP) PO SCH (10:11)
[2019-03-02] MEDS: amLODIPine BESYLATE 10 MG TABLET (FP) PO SCH (10:11)
[2019-03-02] MEDS: MINERAL OIL/PETROLAT/WATER TOPICAL CREAM 113 GM JAR TP SCH ×2 (10:11→22:07)
[2019-03-02] MEDS: NICOTINE 14 MG/24 HOURS TOPICAL PATCH TD SCH (10:12)
[2019-03-02] MEDS: NICOTINE POLACRILEX 2 MG GUM BUC PRN (10:14)
--- NOTE | 2019-03-02 10:31 | EKG ---
Test Reason : Blood Pressure : / mmHG Vent. Rate : 067 BPM Atrial Rate : 067 BPM P-R Int : 120 ms QRS Dur : 086 ms QT Int : 424 ms P-R-T Axes : 054 027 043 degrees QTc Int : 448 ms NORMAL SINUS RHYTHM NONSPECIFIC T WAVE ABNORMALITY ABNORMAL ECG WHEN COMPARED WITH ECG OF 31-AUG-2018 15:07, NON-SPECIFIC CHANGE IN ST SEGMENT IN INFERIOR LEADS NONSPECIFIC T WAVE ABNORMALITY, IMPROVED IN ANTERIOR LEADS QT HAS SHORTENED Confirmed by SANJAY OLIVIER, ELDA ([id number]) on 03/02/2019 10:31:19 AM Referred By: Confirmed By:ELDA GRACE MD
[2019-03-02] MEDS ORDERED: COLLOIDAL OATMEAL 1 BAR EACH TP PRN (11:23)
--- NOTE | 2019-03-02 11:25 | PN ---
BHS CIWA - CIWA Score Nausea/Vomitin-Mild Nausea/No Vomiting Muscle Tremors: 3 Anxiety: 2 Agitation: 3 Paroxysmal Sweats: 1-Minimal Palms Moist Orientation: 1-Uncertain about Date Tacttile Disturbances: 1-Very Mild Itch/Numbness Auditory Disturbances: 0-None Visual Disturbances: 0-None Headache: 0-None Present CIWA-Ar Total Score: 12 BHS Progress Note (SOAP) Subjective: dry skin itchy skin aveeno soap Objective: 03/02/19 11:25 Vital Signs Temperature 97.9 F 03/02/19 09:45 Pulse Rate 74 03/02/19 09:45 Respiratory Rate 18 03/02/19 09:45 Blood Pressure 134/88 03/02/19 09:45 O2 Sat by Pulse Oximetry (%) lab pending Assessment: 03/02/19 11:25 alcohol withdrawal sx Plan: continue detox
[2019-03-02 12:02] LABS: HEMATOCRIT 36.5 % (32.4-45.2); HEMOGLOBIN 12.2 GM/dL (10.7-15.3); MCH 33.5 pg (25.7-33.7); MCHC 33.3 g/dl (32.0-36.0); MEAN CELL VOLUME 100.6 fl (80-96); MEAN PLT VOLUME 8.6 fl (7.5-11.1); PLATELET COUNT 263 K/MM3 (134-434); RBC 3.63 M/mm3 (3.60-5.2); WHITE BLOOD COUNT 5.4 K/mm3 (4.0-10.0)
[2019-03-02 12:05] LABS: ALBUMIN 3.5 g/dl (3.4-5.0); ALK PHOS 104 U/L (45-117); ANION GAP 5 MMOL/L (8-16); BILIRUBIN,TOTAL 0.2 mg/dL (0.2-1); BLOOD UREA NITROGEN 18 mg/dL (7-18); CALCIUM 9.3 mg/dL (8.5-10.1); CHLORIDE 102 mmol/L (98-107); CO2 31 mmol/L (21-32); CREATININE 0.8 mg/dL (0.55-1.3); GLUCOSE,RANDOM 105 mg/dL (74-106); POTASSIUM 4.3 mmol/L (3.5-5.1); SGOT/AST 24 U/L (15-37); SGPT/ALT 25 U/L (13-61); SODIUM 138 mmol/L (136-145)
[2019-03-02 15:04] LABS: EPI CELLS 2.1 /HPF (0-5/HPF); URINE APPEARANCE CLEAR; URINE BACTERIA 0.2 /hpf (NEGATIVE); URINE BILIRUBIN NEGATIVE (NEGATIVE); URINE CASTS 4 /lpf (0-8); URINE COLOR DK YELLOW; URINE GLUCOSE (UA) NEGATIVE (NEGATIVE); URINE KETONE TRACE (NEGATIVE); URINE LEUK ESTERASE 1+ (NEGATIVE); URINE NITRITE NEGATIVE (NEGATIVE); URINE PROTEIN NEGATIVE (NEGATIVE); URINE RBC 3 /hpf (0-4); URINE UROBILINOGEN 0.2 mg/dL (0.2-1.0); URINE WBC 8 /hpf (0-5)
[2019-03-02] MEDS: THIAMINE HCL 100 MG TABLET (FP) PO SCH (22:07)
[2019-03-03] MEDS ORDERED: METHADONE HCL 10 MG TABLET ONE (04:25)
[2019-03-03] MEDS ORDERED: METHADONE HCL 40 MG DISPERSABLE TABLET ONE (04:26)
[2019-03-03] MEDS: METHADONE 40 MG, METHADONE 30 MG PO SCH (05:52)
[2019-03-03] MEDS: chlordiazePOXIDE HCL 25 MG CAPSULE PO SCH ×3 (05:53→18:22)
[2019-03-03] MEDS: IBUPROFEN 400 MG TABLET (FP) PO PRN ×2 (05:54→21:51)
[2019-03-03] MEDS: MINERAL OIL/PETROLAT/WATER TOPICAL CREAM 113 GM JAR TP SCH ×2 (09:27→21:54)
[2019-03-03] MEDS: amLODIPine BESYLATE 10 MG TABLET (FP) PO SCH (09:29)
[2019-03-03] MEDS: NICOTINE 14 MG/24 HOURS TOPICAL PATCH TD SCH (09:29)
[2019-03-03] MEDS: PRENATAL VITAMINS W/ FOLIC ACID TABLET (FP) PO SCH (09:29)
[2019-03-03] MEDS: NICOTINE POLACRILEX 2 MG GUM BUC PRN (09:34)
--- NOTE | 2019-03-03 11:51 | PN ---
S CIWA - CIWA Score Nausea/Vomitin-Mild Nausea/No Vomiting Muscle Tremors: 2 Anxiety: 3 Agitation: 2 Paroxysmal Sweats: 1-Minimal Palms Moist Orientation: 0-Oriented Tacttile Disturbances: 0-None Auditory Disturbances: 0-None Visual Disturbances: 0-None Headache: 0-None Present CIWA-Ar Total Score: 9 BHS Progress Note (SOAP) Subjective: feeling anxious seen by psychiatrist continue lomotrigine Objective: 03/03/19 11:50 Vital Signs Temperature 96.2 F L 03/03/19 09:14 Pulse Rate 81 03/03/19 09:14 Respiratory Rate 18 03/03/19 09:14 Blood Pressure 110/64 03/03/19 09:14 O2 Sat by Pulse Oximetry (%) Laboratory Last Values WBC 5.4 K/mm3 (4.0-10.0) 03/02/19 08:25 RBC 3.63 M/mm3 (3.60-5.2) 03/02/19 08:25 Hgb 12.2 GM/dL (10.7-15.3) 03/02/19 08:25 Hct 36.5 % (32.4-45.2) 03/02/19 08:25 MCV 100.6 fl (80-96) H 03/02/19 08:25 MCH 33.5 pg (25.7-33.7) 03/02/19 08:25 MCHC 33.3 g/dl (32.0-36.0) 03/02/19 08:25 RDW 14.0 % (11.6-15.6) 03/02/19 08:25 Plt Count 263 K/MM3 (134-434) D 03/02/19 08:25 MPV 8.6 fl (7.5-11.1) 03/02/19 08:25 Sodium 138 mmol/L (136-145) 03/02/19 08:25 Potassium 4.3 mmol/L (3.5-5.1) 03/02/19 08:25 Chloride 102 mmol/L (98-107) 03/02/19 08:25 Carbon Dioxide 31 mmol/L (21-32) 03/02/19 08:25 Anion Gap 5 MMOL/L (8-16) L 03/02/19 08:25 BUN 18 mg/dL (7-18) 03/02/19 08:25 Creatinine 0.8 mg/dL (0.55-1.3) 03/02/19 08:25 Creat Clearance w eGFR 73.93 (>60) 03/02/19 08:25 Random Glucose 105 mg/dL (74-106) 03/02/19 08:25 Calcium 9.3 mg/dL (8.5-10.1) 03/02/19 08:25 Total Bilirubin 0.2 mg/dL (0.2-1) 03/02/19 08:25 AST 24 U/L (15-37) 03/02/19 08:25 ALT 25 U/L (13-61) 03/02/19 08:25 Alkaline Phosphatase 104 U/L (45-117) 03/02/19 08:25 Total Protein 7.0 g/dl (6.4-8.2) 03/02/19 08:25 Albumin 3.5 g/dl (3.4-5.0) 03/02/19 08:25 Urine Color Dk yellow 03/02/19 01:05 Urine Appearance Clear 03/02/19 01:05 Urine pH 5.0 (5.0-8.0) 03/02/19 01:05 Ur Specific [place] 1.026 (1.010-1.035) 03/02/19 01:05 Urine Protein Negative (NEGATIVE) 03/02/19 01:05 Urine Glucose (UA) Negative (NEGATIVE) 03/02/19 01:05 Urine Ketones Trace (NEGATIVE) H 03/02/19 01:05 Urine Blood Negative (NEGATIVE) 03/02/19 01:05 Urine Nitrite Negative (NEGATIVE) 03/02/19 01:05 Urine Bilirubin Negative (NEGATIVE) 03/02/19 01:05 Urine Urobilinogen 0.2 mg/dL (0.2-1.0) 03/02/19 01:05 Ur Leukocyte Esterase 1+ (NEGATIVE) H 03/02/19 01:05 Urine WBC (Auto) 8 /hpf (0-5) 03/02/19 01:05 Urine RBC (Auto) 3 /hpf (0-4) 03/02/19 01:05 Urine Casts (Auto) 4 /lpf (0-8) 03/02/19 01:05 U Epithel Cells (Auto) 2.1 /HPF (0-5/HPF) 03/02/19 01:05 Urine Bacteria (Auto) 0.2 /hpf (NEGATIVE) 03/02/19 01:05 RPR Titer Nonreactive (NONREACTIVE) 03/02/19 08:25 lab noted uti 03/03/19 11:52 Assessment: 03/03/19 11:52 withdrawal sx uti Plan: continue detox bactrim ds bid
[2019-03-03] MEDS: SULFAMETHOXAZOLE/TRIMETHOPRIM 800MG/160MG D.S. TABLET PO SCH ×2 (12:58→21:52)
[2019-03-03] MEDS: THIAMINE HCL 100 MG TABLET (FP) PO SCH (21:52)
[2019-03-03] MEDS: chlordiazePOXIDE HCL 10 MG CAPSULE PO SCH (22:04)
[2019-03-03] MEDS ORDERED: chlordiazePOXIDE HCL 10 MG CAPSULE PO PRN (23:00)
[2019-03-04] MEDS ORDERED: METHADONE HCL 40 MG DISPERSABLE TABLET ONE (04:45)
[2019-03-04] MEDS ORDERED: METHADONE HCL 10 MG TABLET ONE (04:45)
[2019-03-04] MEDS: chlordiazePOXIDE HCL 10 MG CAPSULE PO SCH (06:02)
[2019-03-04] MEDS: METHADONE 40 MG, METHADONE 30 MG PO SCH (06:02)
[2019-03-04 09:15] VITALS: BP 98/70; PULSE 83; TEMP 98.2
[2019-03-04] MEDS: NICOTINE 14 MG/24 HOURS TOPICAL PATCH TD SCH (10:37)
[2019-03-04] MEDS: SULFAMETHOXAZOLE/TRIMETHOPRIM 800MG/160MG D.S. TABLET PO SCH (10:37)
[2019-03-04] MEDS: PRENATAL VITAMINS W/ FOLIC ACID TABLET (FP) PO SCH (10:37)
[2019-03-04] MEDS: MINERAL OIL/PETROLAT/WATER TOPICAL CREAM 113 GM JAR TP SCH (10:37)
[2019-03-04] MEDS: amLODIPine BESYLATE 10 MG TABLET (FP) PO SCH (10:37)
--- NOTE | 2019-03-04 11:42 | DS ---
[facility] Detox Discharge Summary Admission Date: 03/01/19 Discharge Date: 03/04/19 - History Present History: Alcohol Dependence, Cocaine Dependence Pertinent Past History: Admitted for alcohol and cocaine use disorders. Pt left AMA today before completing detox protocol. - Physical Exam Results Vital Signs: Vital Signs Temperature 98.2 F 03/04/19 09:14 Pulse Rate 83 03/04/19 09:14 Respiratory Rate 18 03/04/19 09:14 Blood Pressure 98/70 03/04/19 09:14 O2 Sat by Pulse Oximetry (%) - Medication Discharge Medications: Ambulatory Orders Amlodipine Besylate [Norvasc -] 10 mg PO DAILY 11/03/18 - AMA Did Patient Leave Against Medical Advice: Yes
[2019-03-04] MEDS ORDERED: chlordiazePOXIDE HCL 10 MG CAPSULE PO SCH (23:00)
== END 2019-03-04 11:14 | disposition left against medical advice (07) | DRG 770 ==
LOC: YASAS 11:51 → Y3N 16:03
PROVIDERS: ADMIT Surgery; ATTEND Surgery
PROC: HZ2ZZZZ Detoxification Services for Substance Abuse Treatment (ICD-10-PCS; principal; 2019-03-01)
DX: F10.230 Alcohol dependence with withdrawal, uncomplicated (principal); F14.20 Cocaine dependence, uncomplicated; I10 Essential (primary) hypertension; G47.00 Insomnia, unspecified; N39.0 Urinary tract infection, site not specified
CPT/HCPCS: 36415; 80053; 81003; 85027; 86593; 93005; 93010

== ENCOUNTER 2020-08-04 10:02 | Inpatient (IN) | payer OTHER ==
--- OUTSIDE RECORDS SUMMARY | 2020-08-04 10:05 | XMS ---
:1960 Author Organization [facility] Support Name Relationship Address Phone UE Unavailable Unavailable Unavailable CLAIRE ROWLAND SISTER [address] [phone] [place] [address] Re-disclosure Warning The records that you are about to access may contain information from federally- assisted alcohol or drug abuse programs. If such information is present, then the following federally mandated warning applies: This information has been disclosed to you from records protected by federal confidentiality rules (42 CFR part 2). The federal rules prohibit you from making any further disclosure of this information unless further disclosure is expressly permitted by the written consent of the person to whom it pertains or as otherwise permitted by 42 CFR part 2. A general authorization for the release of medical or other information is NOT sufficient for this purpose. The Federal rules restrict any use of the information to criminally investigate or prosecute any alcohol or drug abuse patient.The records that you are about to access may contain highly sensitive health information, the redisclosure of which is protected by Article 27-F of the [facility] Public Health law. If you continue you may haveaccess to information: Regarding HIV / AIDS; Provided by facilities licensed or operated by the [facility] Office of Mental Health; or Provided by the [facility] Office for People With Developmental Disabilities. If such information is present, then the following [facility] mandated warning applies: This information has been disclosed to you from confidential records which are protected by state law. State law prohibits you from making any further disclosure of this information without the specific written consent of the person to whom it pertains, or as otherwise permitted by law. Any unauthorized further disclosure in violation of state law may result in a fine or correction sentence or both. A general authorization for the release of medical or other information is NOT sufficient authorization for further disclosure. Insurance Providers Payer name Policy type Policy ID Covered Covered libertarian's Policy P kaur / Coverage libertarian ID relationship to [facility] ormation type [facility] [employer] [id number] SP [id number] [employer] [id number] SP [id number] [employer] [id number] Self [id number]
--- NOTE | 2020-08-04 11:05 | BHS.RME ---
Substance Use & Tx History - Substance Use History Alcohol Substance amount: 2 pints of vodka Frequency of use: Daily Substance route: Oral Date of Last Use: 08/04/20 - Last Treatment Date of last treatment: [facility] 03/02/19 to 03/04/19 Where was last treatment: Detox Physical/Psych/Mental Status - Behavior Eye Contact: Normal - Cooperativeness Cooperativeness: Cooperative - Thinking Thought Processes: Logical - Physical Health Problems Is patient presently having any pain?: No Does patient presently have any injuries (include location): No Does patient currently have a fever: No CIWA Nausea/Vomitin Muscle Tremors: 3 Anxiety: 3 Agitation: 2 Paroxysmal Sweats: 1-Minimal Palms Moist Orientation: 0-Oriented Tacttile Disturbances: 1-Very Mild Itch/Numbness Auditory Disturbances: 0-None Visual Disturbances: 0-None Headache: 2-Mild CIWA-Ar Total Score: 14
--- NOTE | 2020-08-04 11:12 | HP ---
CIWA Score Nausea/Vomitin Muscle Tremors: 3 Anxiety: 3 Agitation: 2 Paroxysmal Sweats: 1-Minimal Palms Moist Orientation: 0-Oriented Tacttile Disturbances: 1-Very Mild Itch/Numbness Auditory Disturbances: 0-None Visual Disturbances: 0-None Headache: 2-Mild CIWA-Ar Total Score: 14 - Admission Criteria OASAS Guidelines: Admission for Medically Managed Detox: Requires at least one of the followin. CIWA greater than 12 2. Seizures within the past 24 hours 3. Delirium tremens within the past 24 hours 4. Hallucinations within the past 24 hours 5. Acute intervention needed for co occurring medical disorder 6. Acute intervention needed for co occurring psychiatric disorder 7. Severe withdrawal that cannot be handled at a lower level of care (continued vomiting, continued diarrhea, abnormal vital signs) requiring intravenous medication and/or fluids 8. Admitting History and Physical - Admission Chief Complaint: i need help to stop drinking alcohol History of Present Illness: this 60 years old female with alcohol dependence seeking detox from alcohol History Source: Patient Limitations to Obtaining History: No Limitations - Past Medical History Cardiovascular: Yes: HTN - Past Surgical History Past Surgical History: Yes: Appendectomy, Tonsillectomy (at age of 12 years) - Smoking History Smoking history: Current every day smoker Have you smoked in the past 12 months: Yes Aproximately how many cigarettes per day: 8 - Alcohol/Substance Use Hx Alcohol Use: Yes History of Substance Use: reports: None - Social History Usual Living Arrangement: Yes: With Significant Other Do you think of yourself as: Straight/Heterosexual ADL: Family Assistance Occupation: unemployed History of Recent Travel: No Other Social History: unemployed,no legal issue,positive eye pocket marker Admission ROS S - HPI Chief Complaint: i need help to stop drinking alcohol Allergies/Adverse Reactions: Allergies Allergy/AdvReac Type Severity Reaction Status Date / Time No Known Allergies Allergy Verified 08/04/20 12:10 History of Present Illness: this 60 years old female with alcohol dependence seeking detox,withdrawal symptom seeking detox had admission last 03/01/19 to 01/04/19 history of hypertension nicotine dependence positive eye pocket marker on methadone maintenance 70 mgs/day last medicated today,has take home bottle for tomorrow 07/29/2020 history of appendectomy age 12 history of tonsillectomy at age of 15 longest sobriety 1 year Exam Limitations: No Limitations - Ebola screening Have you traveled outside of the country in the last 21 days: No Have you had contact with anyone from an Ebola affected area: No Have you been sick,other than usual withdrawal symptoms: No Do you have a fever: No - Review of Systems Constitutional: Night Sweats, Weight Stable, Unintentional Wgt. Loss, Unexplained wgt Loss EENT: reports: Nose Congestion Respiratory: reports: No Symptoms reported Cardiac: reports: No Symptoms Reported GI: reports: Nausea, Poor Appetite, Abdominal cramping : reports: No Symptoms Reported Musculoskeletal: reports: Back Pain, Muscle Pain Integumentary: reports: Dryness Neuro: reports: Headache, Tremors Endocrine: reports: No Symptoms Reported Hematology: reports: No Symptoms Reported Psychiatric: reports: No Sypmtoms Reported Other Systems: Reviewed and Negative Patient History - Patient Medical History Hx Anemia: No Hx Asthma: No Hx Chronic Obstructive Pulmonary Disease (COPD): No Hx Cancer: No Hx Cardiac Disorders: No Hx Congestive Heart Failure: No Hx Hypertension: Yes (on med) Hx Hypercholesterolemia: No Hx Pacemaker: No HX Cerebrovascular Accident: No Hx Seizures: No Hx Dementia: No Hx Diabetes: No Hx Gastrointestinal Disorders: No Hx Liver Disease: No Hx Genitourinary Disorders: No Hx Sexually Transmitted Disorders: No Hx Renal Disease (ESRD): No Hx Thyroid Disease: No Hx Human Immunodeficiency Virus (HIV): No (last 02/24 negative) Hx Hepatitis C: No Hx Depression: Yes (no med,does not want to see psychiatrist) Hx Suicide Attempt: No Hx Bipolar Disorder: No Hx Schizophrenia: No Other Medical History: no suicidal,no homicidal - Patient Surgical History Past Surgical History: Yes Hx Neurologic Surgery: No Hx Cataract Extraction: No Hx Cardiac Surgery: No Hx Lung Surgery: No Hx Breast Surgery: No Hx Breast Biopsy: No Hx Abdominal Surgery: No Hx Appendectomy: Yes (at age 14) Hx Cholecystectomy: No Hx Genitourinary Surgery: No Hx Section: No Hx Orthopedic Surgery: No Other Surgical History: tonsillectomy at age 15 Anesthesia Reaction: No - PPD History Previous Implant?: Yes Documented Results: Negative w/o proof Implanted On Prior R Admission?: Yes Date: 09/02/18 Results: 0 mm PPD to be Administered?: Yes - Reproductive History Patient is a Female of Child Bearing Age (11 -55 yrs old): No Last Menstrual Period: 06/01/13 Patient : No - Smoking Cessation Smoking history: Current every day smoker Have you smoked in the past 12 months: Yes Aproximately how many cigarettes per day: 8 Hx Chewing Tobacco Use: No Initiated information on smoking cessation: Yes 'Breaking Loose' booklet given: 08/04/20 - Substance & Tx. History Hx Alcohol Use: Yes Hx Substance Use: No Substance Use Type: Alcohol Hx Substance Use Treatment: Yes ([facility] 03/01/19 to 03/04/19) - Substances abused Alcohol Substance route: Oral Frequency: Daily Amount used: 2pints of codka Age of first use: 14 Date of last use: 08/04/20 Admission Physical Exam [facility] - Vital Signs Vital Signs: bp 152/106,p94,r 18,t 97,keyon 0.180,pulse ox 96 - Physical General Appearance: Yes: Moderate Distress, Tremorous, Irritable, Sweating, Anxious HEENTM: Yes: LIZANDRO, Pharynx Normal Respiratory: Yes: Lungs Clear, Normal Breath Sounds, No Respiratory Distress Neck: Yes: Within Normal Limits, Supple, Trachea in good position Breast: Yes: Breast Exam Deferred Cardiology: Yes: Within Normal Limits, Regular Rhythm, Regular Rate, S1, S2 Abdominal: Yes: Within Normal Limits, Normal Bowel Sounds, Soft Genitourinary: Yes: Within Normal Limits Back: Yes: Muscle Spasm Musculoskeletal: Yes: Back pain, Muscle Pain Extremities: Yes: Tremors 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 intact, Fully Oriented, Alert, Motor Strength 5/5 Integumentary: Yes: Dry Lymphatic: Yes: Within Normal Limits - Diagnostic (1) Alcohol dependence with uncomplicated withdrawal Current Visit: No Status: Acute (2) Essential hypertension Current Visit: No Status: Chronic (3) Methadone maintenance therapy patient Current Visit: No Status: Chronic (4) Nicotine dependence Current Visit: No Status: Chronic Qualifiers: Nicotine product type: cigarettes Substance use status: uncomplicated Qualified Code(s): F17.210 - Nicotine dependence, cigarettes, uncomplicated Cleared for Admission [facility] - Detox or Rehab [facility] Level of Care: Medically Managed Detox Regimen/Protocol: Librium Breathalyzer - Breathalyzer Breathalyzer: 0.085 POC Urine test - Test device test lot number: [id number] Expiration date: 07/09/20 - Control test control: Yes Urine Drug Screen - Test Device Lot number: [id number] Expiration date: 10/08/20 - Control Is test valid?: Yes - Results Drug screen NEGATIVE: No Urine drug screen results: FOSTER-Cocaine, MTD-Methadone Inpatient Rehab Admission - Rehab Decision to Admit Inpatient rehab admission?: No
[2020-08-04 11:26] VITALS: BMI 18.1
[2020-08-04] MEDS ORDERED: IBUPROFEN 400 MG TABLET (FP) PO PRN (12:40)
[2020-08-04] MEDS ORDERED: chlordiazePOXIDE HCL 25 MG CAPSULE PO PRN (12:40)
[2020-08-04] MEDS ORDERED: ACETAMINOPHEN 325 MG TABLET (FP) PO PRN ×2 (12:40)
[2020-08-04] MEDS ORDERED: MAG HYDROX/AL HYDROX/SIMETH 30 ML UNIT-DOSE CUP PO PRN (12:40)
[2020-08-04] MEDS ORDERED: MAGNESIUM HYDROX 2400MG/30ML ORAL SUSPENSION 30 ML CUP PO PRN (12:40)
[2020-08-04] MEDS ORDERED: NICOTINE POLACRILEX 2 MG GUM BUC PRN (12:40)
[2020-08-04] MEDS ORDERED: MAGNESIUM CITRATE 300 ML BOTTLE PO PRN (12:40)
[2020-08-04] MEDS ORDERED: MENTHOL/PHENOL 1 EACH UD MM PRN (12:40)
[2020-08-04] MEDS ORDERED: METHOCARBAMOL 500 MG TABLET PO PRN (12:40)
[2020-08-04] MEDS ORDERED: ONDANSETRON *ODT* 4 MG TABLET SL PRN (12:40)
[2020-08-04] MEDS ORDERED: BISMUTH SUBSALICYLATE 524 MG/30 ML UD PO PRN (12:40)
--- OUTSIDE RECORDS SUMMARY | 2020-08-04 12:51 | XMS ---
:1960 Author Organization [facility] Support Name Relationship Address Phone UE Unavailable Unavailable Unavailable CLAIRE ROWLAND SISTER [address] [place] [address] Re-disclosure Warning The records that you are [...] is protected by Article 27-F of the [facility] Public Health law. If you continue you may haveaccess to information: Regarding HIV / AIDS; Provided by facilities licensed or operated by the [facility] Office of Mental Health; or Provided by the [facility] Office for People With Developmental Disabilities. If such information is present, then the following [facility] mandated warning applies: This information has [...] law may result in a fine or nursing home sentence or both. A general authorization for the release of medical or other information is NOT sufficient authorization for further disclosure. Insurance Providers Payer name Policy type Policy ID Covered Covered green party's Policy P kaur / Coverage green party ID relationship to [facility] ormation type [place] [employer] [id number] SP [id number] U [employer] [id number] SP [id number] U [employer] [id number] Self [id number]
[2020-08-04] MEDS ORDERED: cloNIDine HCL 0.1 MG TABLET PO ONE (12:55)
[2020-08-04] MEDS: NICOTINE 21 MG/24 HOURS TOPICAL PATCH TD SCH (13:39)
[2020-08-04] MEDS: PRENATAL VITAMINS W/ FOLIC ACID TABLET (FP) PO SCH (13:39)
[2020-08-04] MEDS: amLODIPine BESYLATE 10 MG TABLET (FP) PO SCH (13:40)
[2020-08-04] MEDS: hydrOXYzine PAMOATE 25 MG CAPSULE (FP) PO SCH ×3 (13:40→22:22)
[2020-08-04] MEDS: chlordiazePOXIDE HCL 25 MG CAPSULE PO SCH ×2 (18:01→22:21)
[2020-08-04] MEDS: THIAMINE HCL 100 MG TABLET (FP) PO SCH (22:22)
[2020-08-04] MEDS: MELATONIN 5 MG TABLETS PO SCH (22:22)
[2020-08-05] MEDS ORDERED: METHADONE HCL 10 MG TABLET PO ONE (06:00)
[2020-08-05] MEDS ORDERED: METHADONE 40 MG, METHADONE 30 MG PO ONE (06:00)
[2020-08-05] MEDS ORDERED: METHADONE HCL 10 MG TABLET ONE (06:10)
[2020-08-05] MEDS ORDERED: METHADONE HCL 40 MG DISPERSABLE TABLET ONE (06:11)
[2020-08-05] MEDS: chlordiazePOXIDE HCL 25 MG CAPSULE PO SCH ×2 (07:01→10:14)
[2020-08-05] MEDS: hydrOXYzine PAMOATE 25 MG CAPSULE (FP) PO SCH ×5 (07:02→22:10)
--- NOTE | 2020-08-05 09:02 | PN ---
[facility] CIWA - CIWA Score Nausea/Vomitin-Mild Nausea/No Vomiting Muscle Tremors: 3 Anxiety: 3 Agitation: 0-Normal Activity Paroxysmal Sweats: No Perspiration Orientation: 0-Oriented Tacttile Disturbances: 0-None Auditory Disturbances: 0-None Visual Disturbances: 2-Mild Sensitivity Headache: 2-Mild CIWA-Ar Total Score: 11 S Progress Note (SOAP) Subjective: 60 years old female was admitted on 08/04/20 for alcohol withdrawal sx management treating with librium detox regiment methadone 70mg po daily medical condition hypertension treated with amlodipine 10 mg po daily bp elevation upon admission received amlodipine and clonidine about 10 mmhg reduction continue amlodipine and adding metoprolol 25 mg po bid Objective: 08/05/20 09:01 Vital Signs - 24 hr 08/04/20 08/04/20 08/04/20 11:14 16:48 21:00 Temperature 97 F L 97.8 F 97.3 F L Pulse Rate 94 H 93 H 87 Respiratory 18 18 18 Rate Blood Pressure 152/106 H 165/105 H 145/95 O2 Sat by Pulse 96 Oximetry (%) 08/05/20 06:55 Temperature 97.5 F L Pulse Rate 107 H Respiratory 16 Rate Blood Pressure 143/107 H O2 Sat by Pulse 96 Oximetry (%) 08/05/20 09:01 lab pending Assessment: 08/05/20 10:43 alcohol withdrawal hypertension Plan: librium regiment amlodipine 10 mg po daily metoprolol 25 mg po bid
[2020-08-05] MEDS ORDERED: cloNIDine HCL 0.1 MG TABLET PO PRN (10:00)
[2020-08-05] MEDS: PRENATAL VITAMINS W/ FOLIC ACID TABLET (FP) PO SCH (10:14)
[2020-08-05] MEDS: amLODIPine BESYLATE 10 MG TABLET (FP) PO SCH (10:14)
[2020-08-05] MEDS: NICOTINE 21 MG/24 HOURS TOPICAL PATCH TD SCH (10:14)
[2020-08-05] MEDS ORDERED: METOPROLOL TARTRATE 25 MG TABLET (FP) PO SCH (10:45)
[2020-08-05 12:02] LABS: HEMATOCRIT 38.2 % (32.4-45.2); HEMOGLOBIN 12.9 GM/dL (10.7-15.3); MCH 36.1 pg (25.7-33.7); MCHC 33.9 g/dl (32.0-36.0); MEAN CELL VOLUME 106.5 fl (80-96); MEAN PLT VOLUME 8.9 fl (7.5-11.1); PLATELET COUNT 153 K/MM3 (134-434); RBC 3.58 M/mm3 (3.60-5.2); RDW 16.1 % (11.6-15.6)
[2020-08-05 12:16] LABS: ALBUMIN 3.3 g/dl (3.4-5.0); BILIRUBIN,TOTAL 1.3 mg/dL (0.2-1); BLOOD UREA NITROGEN 10.6 mg/dL (7-18); CALCIUM 9.3 mg/dL (8.5-10.1); CREATININE 0.5 mg/dL (0.55-1.3); TOT PROT 6.7 g/dl (6.4-8.2)
[2020-08-05 12:37] LABS: POTASSIUM 2.8 mmol/L (3.5-5.1)
[2020-08-05] MEDS ORDERED: LORazepam 1 MG TABLET PO PRN (12:40)
[2020-08-05] MEDS: POTASSIUM CHLORIDE ORAL LIQUID 20 MEQ/15 ML PO SCH ×2 (13:50→17:19)
[2020-08-05] MEDS: LORazepam 2 MG TABLET PO SCH ×2 (17:21→22:10)
[2020-08-05] MEDS: METOPROLOL TARTRATE 25 MG TABLET (FP) PO SCH (22:10)
[2020-08-05] MEDS: MELATONIN 5 MG TABLETS PO SCH (22:10)
[2020-08-05] MEDS: THIAMINE HCL 100 MG TABLET (FP) PO SCH (22:10)
[2020-08-05 22:33] LABS: EPI CELLS 28 /uL (0-25.1); HYALINE CASTS 8 /uL (0-3.1); URINE APPEARANCE CLOUDY; URINE BACTERIA >9,000 /uL (0-1359); URINE BILIRUBIN 1+ (NEGATIVE); URINE COLOR DK YELLOW; URINE GLUCOSE (UA) NEGATIVE (NEGATIVE); URINE KETONE TRACE (NEGATIVE); URINE LEUK ESTERASE 2+ (NEGATIVE); URINE NITRITE NEGATIVE (NEGATIVE); URINE PROTEIN NEGATIVE (NEGATIVE); URINE RBC 12 /uL (0-23.9); URINE WBC 342 /uL (0-25.8)
[2020-08-06] MEDS ORDERED: chlordiazePOXIDE HCL 25 MG CAPSULE PO SCH (05:00)
[2020-08-06] MEDS: LORazepam 2 MG TABLET PO SCH ×4 (06:43→22:21)
[2020-08-06] MEDS: hydrOXYzine PAMOATE 25 MG CAPSULE (FP) PO SCH ×3 (06:43→13:04)
[2020-08-06] MEDS ORDERED: METHADONE HCL 10 MG TABLET ONE (09:41)
[2020-08-06] MEDS ORDERED: METHADONE HCL 40 MG DISPERSABLE TABLET ONE (09:42)
[2020-08-06] MEDS ORDERED: METHADONE 40 MG, METHADONE 30 MG PO ONE (10:00)
[2020-08-06] MEDS ORDERED: METHADONE HCL 10 MG TABLET PO ONE (10:00)
[2020-08-06] MEDS: NICOTINE 21 MG/24 HOURS TOPICAL PATCH TD SCH (10:27)
[2020-08-06] MEDS: PRENATAL VITAMINS W/ FOLIC ACID TABLET (FP) PO SCH (10:27)
[2020-08-06] MEDS: amLODIPine BESYLATE 10 MG TABLET (FP) PO SCH (10:27)
[2020-08-06] MEDS: METOPROLOL TARTRATE 25 MG TABLET (FP) PO SCH ×2 (11:00→22:21)
--- NOTE | 2020-08-06 14:18 | PN ---
S CIWA - CIWA Score Nausea/Vomitin-Mild Nausea/No Vomiting Muscle Tremors: 2 Anxiety: 2 Agitation: 0-Normal Activity Paroxysmal Sweats: No Perspiration Orientation: 0-Oriented Tacttile Disturbances: 0-None Auditory Disturbances: 0-None Visual Disturbances: 2-Mild Sensitivity Headache: 2-Mild CIWA-Ar Total Score: 9 S Progress Note (SOAP) Subjective: 60 years old female was admitted on 08/04/20 for alcohol withdrawal sx management treating with ativan detox regiment report tired observed eating lunch with eyes closed discontinue vistaril Abnormal Lab Results 08/05/20 22:20 Urine Ketones Trace H Urine Bilirubin 1+ H Ur Leukocyte Esterase 2+ H Laboratory Tests 08/05/20 08/05/20 08/05/20 07:30 07:30 07:30 WBC 4.0 RBC 3.58 L Hgb 12.9 Hct 38.2 MCV 106.5 H MCH 36.1 H MCHC 33.9 RDW 16.1 H Plt Count 153 D MPV 8.9 Sodium 139 Potassium 2.8 L* Chloride 99 Carbon Dioxide 32 Anion Gap 8 BUN 10.6 Creatinine 0.5 L Est GFR (CKD-EPI)AfAm 122.78 Est GFR (CKD-EPI)NonAf 105.94 Random Glucose 103 Calcium 9.3 Total Bilirubin 1.3 H AST 250 H ALT 66 H Alkaline Phosphatase 186 H Total Protein 6.7 Albumin 3.3 L Urine Color Urine Appearance Urine pH Ur Specific [place] Urine Protein Urine Glucose (UA) Urine Ketones Urine Blood Urine Nitrite Urine Bilirubin Urine Urobilinogen Ur Leukocyte Esterase Urine WBC (Auto) Urine RBC (Auto) Urine Casts (Auto) U Pathogenic Cast Auto U Epithel Cells (Auto) Urine Bacteria (Auto) Syphilis Serology Non-reactive 08/05/20 08/06/20 22:20 07:10 WBC RBC Hgb Hct MCV MCH MCHC RDW Plt Count MPV Sodium Potassium 3.9 Chloride Carbon Dioxide Anion Gap BUN Creatinine Est GFR (CKD-EPI)AfAm Est GFR (CKD-EPI)NonAf Random Glucose Calcium Total Bilirubin AST ALT Alkaline Phosphatase Total Protein Albumin Urine Color Dk yellow Urine Appearance Cloudy Urine pH 6.0 Ur Specific [place] 1.015 Urine Protein Negative Urine Glucose (UA) Negative Urine Ketones Trace H Urine Blood Negative Urine Nitrite Negative Urine Bilirubin 1+ H Urine Urobilinogen 1.0 Ur Leukocyte Esterase 2+ H Urine WBC (Auto) 342 Urine RBC (Auto) 12 Urine Casts (Auto) 8 U Pathogenic Cast Auto Negative U Epithel Cells (Auto) 28 Urine Bacteria (Auto) >9,000 Syphilis Serology uti uncomplicated Objective: 08/06/20 14:19 Vital Signs - 24 hr 08/05/20 08/05/20 08/05/20 16:55 20:47 20:49 Temperature 98.0 F 98.2 F 98.0 F Pulse Rate 98 H 92 H 98 H Respiratory 18 18 18 Rate Blood Pressure 122/91 117/92 122/91 O2 Sat by Pulse 95 98 95 Oximetry (%) 08/06/20 08/06/20 08/06/20 06:20 09:05 13:20 Temperature 98.2 F 97.4 F L 97.3 F L Pulse Rate 84 77 92 H Respiratory 16 16 18 Rate Blood Pressure 123/82 112/79 112/87 O2 Sat by Pulse 96 98 Oximetry (%) Assessment: 08/06/20 14:22 alcohol withdrawal uti Plan: ativan regiment bactrim ds bid x 5 days
[2020-08-06] MEDS: SULFAMETHOXAZOLE/TRIMETHOPRIM 800MG/160MG D.S. TABLET PO SCH ×2 (15:27→22:22)
[2020-08-06] MEDS: MELATONIN 5 MG TABLETS PO SCH (22:21)
[2020-08-06] MEDS: THIAMINE HCL 100 MG TABLET (FP) PO SCH (22:22)
[2020-08-07] MEDS ORDERED: chlordiazePOXIDE HCL 10 MG CAPSULE PO PRN
[2020-08-07] MEDS ORDERED: chlordiazePOXIDE HCL 10 MG CAPSULE PO SCH (05:00)
[2020-08-07] MEDS ORDERED: METHADONE HCL 10 MG TABLET ONE (05:42)
[2020-08-07] MEDS ORDERED: METHADONE HCL 40 MG DISPERSABLE TABLET ONE (05:42)
[2020-08-07] MEDS: LORazepam 1 MG TABLET PO SCH ×4 (05:43→22:43)
[2020-08-07] MEDS: METHADONE 40 MG, METHADONE 30 MG PO SCH (05:43)
[2020-08-07] MEDS ORDERED: METHADONE HCL 10 MG TABLET PO SCH (06:00)
[2020-08-07] MEDS: amLODIPine BESYLATE 10 MG TABLET (FP) PO SCH (10:22)
[2020-08-07] MEDS: SULFAMETHOXAZOLE/TRIMETHOPRIM 800MG/160MG D.S. TABLET PO SCH ×2 (10:22→22:43)
[2020-08-07] MEDS: METOPROLOL TARTRATE 25 MG TABLET (FP) PO SCH ×2 (10:22→22:43)
[2020-08-07] MEDS: PRENATAL VITAMINS W/ FOLIC ACID TABLET (FP) PO SCH (10:26)
[2020-08-07] MEDS: NICOTINE 21 MG/24 HOURS TOPICAL PATCH TD SCH (10:26)
--- NOTE | 2020-08-07 10:50 | PN ---
S CIWA - CIWA Score Nausea/Vomitin-No Nausea/No Vomiting Muscle Tremors: 2 Anxiety: 2 Agitation: 2 Paroxysmal Sweats: No Perspiration Orientation: 0-Oriented Tacttile Disturbances: 1-Very Mild Itch/Numbness Auditory Disturbances: 0-None Visual Disturbances: 0-None Headache: 2-Mild CIWA-Ar Total Score: 9 BHS Progress Note (SOAP) Subjective: alert,irritable,anxious,interrupted sleep,aching pain Objective: 08/07/20 17:19 Vital Signs Temperature 97.1 F L 08/07/20 13:08 Pulse Rate 88 08/07/20 13:08 Respiratory Rate 18 08/07/20 13:08 Blood Pressure 109/83 08/07/20 13:08 O2 Sat by Pulse Oximetry (%) 95 08/07/20 13:08 Laboratory Results - last 24 hr 08/04/20 12:45 COVID-19 (MEL) Not detected 08/07/20 17:20 k 3.9 on 08/06/20 Assessment: 08/07/20 17:21 withdrawal symptom Plan: continue detox ativan regimen,bgm monitoring,continue bactrim ds 1 tab po bid for uti,fluid
[2020-08-07] MEDS: MELATONIN 5 MG TABLETS PO SCH (22:43)
[2020-08-07] MEDS: THIAMINE HCL 100 MG TABLET (FP) PO SCH (22:43)
[2020-08-08] MEDS ORDERED: LORazepam 0.5 MG TABLET PO PRN
[2020-08-08] MEDS ORDERED: METHADONE HCL 10 MG TABLET ONE (04:27)
[2020-08-08] MEDS ORDERED: METHADONE HCL 40 MG DISPERSABLE TABLET ONE (04:28)
[2020-08-08] MEDS ORDERED: chlordiazePOXIDE HCL 10 MG CAPSULE PO SCH (05:00)
[2020-08-08] MEDS: METHADONE 40 MG, METHADONE 30 MG PO SCH (05:42)
[2020-08-08] MEDS: LORazepam 0.5 MG TABLET PO SCH ×4 (05:42→22:28)
[2020-08-08] MEDS: NICOTINE 21 MG/24 HOURS TOPICAL PATCH TD SCH (10:20)
[2020-08-08] MEDS: amLODIPine BESYLATE 10 MG TABLET (FP) PO SCH (10:20)
[2020-08-08] MEDS: SULFAMETHOXAZOLE/TRIMETHOPRIM 800MG/160MG D.S. TABLET PO SCH ×2 (10:21→22:28)
[2020-08-08] MEDS: METOPROLOL TARTRATE 25 MG TABLET (FP) PO SCH ×2 (10:21→22:29)
[2020-08-08] MEDS: PRENATAL VITAMINS W/ FOLIC ACID TABLET (FP) PO SCH (10:22)
--- NOTE | 2020-08-08 12:56 | PN ---
S CIWA - CIWA Score Nausea/Vomitin-No Nausea/No Vomiting Muscle Tremors: 1-None Visible, but [place] Anxiety: 1-Mildly Anxious Agitation: 1-Slight > Activity Paroxysmal Sweats: No Perspiration Orientation: 1-Uncertain about Date Tacttile Disturbances: 0-None Auditory Disturbances: 0-None Visual Disturbances: 0-None Headache: 2-Mild CIWA-Ar Total Score: 6 BHS Progress Note (SOAP) Subjective: alert,irritable,anxious,interrupted sleep,aching pain Objective: 08/08/20 17:31 Vital Signs Temperature 97.3 F L 08/08/20 12:50 Pulse Rate 78 08/08/20 12:50 Respiratory Rate 18 08/08/20 12:50 Blood Pressure 108/78 08/08/20 12:50 O2 Sat by Pulse Oximetry (%) 95 08/08/20 12:50 Assessment: 08/08/20 17:32 withdrawal symptom Plan: continue detox ativan regimen,discharge in am
[2020-08-08] MEDS: THIAMINE HCL 100 MG TABLET (FP) PO SCH (22:28)
[2020-08-08] MEDS: MELATONIN 5 MG TABLETS PO SCH (22:52)
[2020-08-09] MEDS ORDERED: LORazepam 0.5 MG TABLET PO ONE (05:00)
[2020-08-09] MEDS ORDERED: chlordiazePOXIDE HCL 10 MG CAPSULE PO ONE (05:00)
[2020-08-09] MEDS ORDERED: METHADONE HCL 40 MG DISPERSABLE TABLET ONE (05:16)
[2020-08-09] MEDS ORDERED: METHADONE HCL 10 MG TABLET ONE (05:16)
[2020-08-09] MEDS: METHADONE 40 MG, METHADONE 30 MG PO SCH (05:48)
[2020-08-09 06:31] VITALS: TEMP 97.1
[2020-08-09] MEDS: METOPROLOL TARTRATE 25 MG TABLET (FP) PO SCH (09:02)
[2020-08-09] MEDS: amLODIPine BESYLATE 10 MG TABLET (FP) PO SCH (09:02)
[2020-08-09] MEDS: SULFAMETHOXAZOLE/TRIMETHOPRIM 800MG/160MG D.S. TABLET PO SCH (09:03)
[2020-08-09] MEDS: PRENATAL VITAMINS W/ FOLIC ACID TABLET (FP) PO SCH (09:03)
[2020-08-09] MEDS: NICOTINE 21 MG/24 HOURS TOPICAL PATCH TD SCH (09:03)
[2020-08-09 09:44] VITALS: BP 121/90; PULSE 94
--- NOTE | 2020-08-09 10:27 | PN ---
[facility] CIWA - CIWA Score Nausea/Vomitin-No Nausea/No Vomiting Muscle Tremors: None Anxiety: 1-Mildly Anxious Agitation: 0-Normal Activity Paroxysmal Sweats: No Perspiration Orientation: 0-Oriented Tacttile Disturbances: 0-None Auditory Disturbances: 0-None Visual Disturbances: 0-None Headache: 0-None Present CIWA-Ar Total Score: 1 S Progress Note (SOAP) Subjective: alert,no complaint Objective: 08/09/20 13:52 Vital Signs Temperature 97.1 F L 08/09/20 08:53 Pulse Rate 94 H 08/09/20 08:53 Respiratory Rate 18 08/09/20 08:53 Blood Pressure 121/90 08/09/20 08:53 O2 Sat by Pulse Oximetry (%) 96 08/09/20 06:31 Assessment: 08/09/20 13:53 detox completed,no withdrawal symptom Plan: discharge in good condition,follow up with after care program as arrangement
--- NOTE | 2020-08-09 10:27 | DS ---
[facility] Detox Discharge Summary Admission Date: 08/04/20 Discharge Date: 08/09/20 - History Present History: Alcohol Dependence Additional Comments: alert,oriented x 3 ambulation on the unit lung clear on auscultation bilaterally abdomen soft,no pain no edema of legs detox completed,no withdrawal symptom stable for discharge today, declined rehab follow up with after care program as arrangement and medical provider for follow up total time spending on discharge 35 minutes Pertinent Past History: hypertension nicotine dependence - Physical Exam Results Vital Signs: Vital Signs Temperature 97.1 F L 08/09/20 08:53 Pulse Rate 94 H 08/09/20 08:53 Respiratory Rate 18 08/09/20 08:53 Blood Pressure 121/90 08/09/20 08:53 O2 Sat by Pulse Oximetry (%) 96 08/09/20 06:31 Pertinent Admission Physical Exam Findings: withdrawal sign and symptom Laboratory Last Values WBC 4.0 K/mm3 (4.0-10.0) 08/05/20 07:30 RBC 3.58 M/mm3 (3.60-5.2) L 08/05/20 07:30 Hgb 12.9 GM/dL (10.7-15.3) 08/05/20 07:30 Hct 38.2 % (32.4-45.2) 08/05/20 07:30 MCV 106.5 fl (80-96) H 08/05/20 07:30 MCH 36.1 pg (25.7-33.7) H 08/05/20 07:30 MCHC 33.9 g/dl (32.0-36.0) 08/05/20 07:30 RDW 16.1 % (11.6-15.6) H 08/05/20 07:30 Plt Count 153 K/MM3 (134-434) D 08/05/20 07:30 MPV 8.9 fl (7.5-11.1) 08/05/20 07:30 Sodium 139 mmol/L (136-145) 08/05/20 07:30 Potassium 3.9 mmol/L (3.5-5.1) 08/06/20 07:10 Chloride 99 mmol/L (98-107) 08/05/20 07:30 Carbon Dioxide 32 mmol/L (21-32) 08/05/20 07:30 Anion Gap 8 MMOL/L (8-16) 08/05/20 07:30 BUN 10.6 mg/dL (7-18) 08/05/20 07:30 Creatinine 0.5 mg/dL (0.55-1.3) L 08/05/20 07:30 Est GFR (CKD-EPI)AfAm 122.78 08/05/20 07:30 Est GFR (CKD-EPI)NonAf 105.94 08/05/20 07:30 Random Glucose 103 mg/dL (74-106) 08/05/20 07:30 Calcium 9.3 mg/dL (8.5-10.1) 08/05/20 07:30 Total Bilirubin 1.3 mg/dL (0.2-1) H 08/05/20 07:30 AST 250 U/L (15-37) H 08/05/20 07:30 ALT 66 U/L (13-61) H 08/05/20 07:30 Alkaline Phosphatase 186 U/L (45-117) H 08/05/20 07:30 Total Protein 6.7 g/dl (6.4-8.2) 08/05/20 07:30 Albumin 3.3 g/dl (3.4-5.0) L 08/05/20 07:30 Urine Color Dk yellow 08/05/20 22:20 Urine Appearance Cloudy 08/05/20 22:20 Urine pH 6.0 (5.0-8.0) 08/05/20 22:20 Ur Specific [place] 1.015 (1.010-1.035) 08/05/20 22:20 Urine Protein Negative (NEGATIVE) 08/05/20 22:20 Urine Glucose (UA) Negative (NEGATIVE) 08/05/20 22:20 Urine Ketones Trace (NEGATIVE) H 08/05/20 22:20 Urine Blood Negative (NEGATIVE) 08/05/20 22:20 Urine Nitrite Negative (NEGATIVE) 08/05/20 22:20 Urine Bilirubin 1+ (NEGATIVE) H 08/05/20 22:20 Urine Urobilinogen 1.0 mg/dL (0.2-1.0) 08/05/20 22:20 Ur Leukocyte Esterase 2+ (NEGATIVE) H 08/05/20 22:20 Urine WBC (Auto) 342 /uL (0-25.8) 08/05/20 22:20 Urine RBC (Auto) 12 /uL (0-23.9) 08/05/20 22:20 Urine Casts (Auto) 8 /uL (0-3.1) 08/05/20 22:20 U Pathogenic Cast Auto Negative /lpf (NEGATIVE) 08/05/20 22:20 U Epithel Cells (Auto) 28 /uL (0-25.1) 08/05/20 22:20 Urine Bacteria (Auto) >9,000 /uL (0-1359) 08/05/20 22:20 Syphilis Serology Non-reactive (NONREACTIVE) 08/05/20 07:30 COVID-19 (MEL) Not detected 08/04/20 12:45 Vital Signs Temperature 97.1 F L 08/09/20 08:53 Pulse Rate 94 H 08/09/20 08:53 Respiratory Rate 18 08/09/20 08:53 Blood Pressure 121/90 08/09/20 08:53 O2 Sat by Pulse Oximetry (%) 96 08/09/20 06:31 - Treatment Hospital Course: Detox Protocol Followed, Detoxed Safely, Responded well, Discharged Condition Good Patient has Accepted a Rehab Referral to: declined - Medication Discharge Medications: Ambulatory Orders Amlodipine Besylate [Norvasc -] 10 mg PO DAILY 11/03/18 - Diagnosis (1) Alcohol dependence with uncomplicated withdrawal Status: Acute (2) Essential hypertension Status: Chronic (3) Methadone maintenance therapy patient Status: Chronic (4) Nicotine dependence Status: Chronic Qualifiers: Nicotine product type: cigarettes Substance use status: uncomplicated Qualified Code(s): F17.210 - Nicotine dependence, cigarettes, uncomplicated (5) UTI (urinary tract infection) Status: Acute - AMA Did Patient Leave Against Medical Advice: No
== END 2020-08-09 09:20 | disposition home or self-care (01) | DRG 773 ==
LOC: YASAS 10:02 → Y3N 12:40
PROVIDERS: ADMIT Allergy & Immunology; ATTEND Allergy & Immunology
PROC: HZ2ZZZZ Detoxification Services for Substance Abuse Treatment (ICD-10-PCS; principal; 2020-08-04)
DX: F10.230 Alcohol dependence with withdrawal, uncomplicated (principal); F11.20 Opioid dependence, uncomplicated; F17.210 Nicotine dependence, cigarettes, uncomplicated; F32.9 Major depressive disorder, single episode, unspecified; I10 Essential (primary) hypertension; N39.0 Urinary tract infection, site not specified; R63.4 Abnormal weight loss; Z68.1 Body mass index [BMI] 19.9 or less, adult; Z90.49 Acquired absence of other specified parts of digestive tract; Z98.890 Other specified postprocedural states
CPT/HCPCS: 36415; 80053; 81003; 84132; 85027; 86780; J0735; U0003